=== PATIENT | male | born 1970 | race Caucasian/White ===

== ENCOUNTER → 2018-05-13 09:14 | Outpatient (CLI) | payer OTHER, SELFPAY ==
--- NOTE | 2018-05-13 09:21 | RAD_ITS ---
STUDY: X-RAY CHEST REASON FOR EXAM: Male, 48 years old. Asthma exacerbation TECHNIQUE: PA and lateral views of the chest. COMPARISON: September 07, 2016 chest x-ray FINDINGS: The lungs are clear and expanded. There is no demonstrated pleural abnormality. Normal size heart. Normal mediastinum and bull. Normal visualized pulmonary arteries. Normal visualized aortic arch and descending thoracic aorta. Normal visualized thoracic spine. Normal visualized ribs, clavicles, and shoulders. There is no demonstrated abnormality of the visualized soft tissue structures of the upper abdomen. RAD/Chest PA and Lateral IMPRESSION: Stable chest no visible acute focal infiltrate. Electronically Signed: Esha Ruff MD at 2:57 EST Tel , Service support ,
--- OUTSIDE RECORDS SUMMARY | 2018-08-14 15:57 | XMS RPT_ITS ---
:1970 Author Organization [facility] Care Team Providers Name Role Phone DINESH DAILY MD Attending Unavailable SHRUTI HAYNES, DR. LUCAS Primary Care Unavailable Sammy Arora Attending Unavailable Sammy Arora Referring Unavailable Carlo Barboza Primary Care Unavailable Felix Edouard Attending Unavailable Carlo Barboza Referring Unavailable Carlo Barboza Attending Unavailable Carlo Barboza Referring Unavailable Carlo Barboza Primary Care Unavailable PROBLEMS PROBLEMS No Problem Records FoundPROCEDURES PROCEDURES No Procedure Records FoundRESULTS RESULTS ESOPHAGUS ONLY Observed: 06/16/2018 Status: F Source: [place] 9:[address] [facility] REPOSITORY [facility] Imaging Services [address] [place] [address] Esophagus Only MR#: [id number] Acct: [id number] Name: LUZMARIA ROMO Rep #: [id number] : 1970 M 48 From: Wilber Gomez MD PCP: Carlo Barboza MD Status: REG CLI Study: Esophagus Only Date of Exam: 06/16/18 Exam# [id number] Ordering Dr: Sher Barboza MD STUDY: X-RAY - ESOPHAGUS (BARIUM SWALLOW) WITH FLUOROSCOPY REASON FOR EXAM: Male, 48 years old. Dysphagia. TECHNIQUE: 16 view(s) of the esophagus were obtained following swallowing of barium. FLUOROSCOPY TIME (if supplied): (0:36) minutes/seconds COMPARISON: None. FINDINGS: There is no demonstrated esophageal foreign body. There is no demonstrated stricture or mucosal abnormality. Normal gastroesophageal junction, without a demonstrated hiatal hernia. The patient ingested a 12 mm tablet of barium without any difficulty. Normal visualized aortic arch and descending thoracic aorta. Normal visualized pulmonary parenchyma. Normal visualized osseous structures of the thorax. RAD/Esophagus Only IMPRESSION: Normal plain film x-ray examination (barium swallow) of the esophagus. Electronically Signed: Wilber Gomez MD at 10:15 EST Tel [phone], Service support , CC: Carlo Barboza MD Hospital Fellow: Signed SURGERY VISIT REPORT Observed: 06/09/2018 Status: F Source: [place] 1:[address] [facility] REPOSITORY [facility] [address] [place] [address]. [address] [place] [address] OFFICE VISIT Date of Service: 06/03/18 MR#: [id number] Acct: [id number] Name: LUZMARIA ROMO Rep #: [id number] : 1970 Provider: Felix Edouard MD Age/Sex: 48/M Location: [facility] Status: Signed Intake Vital Signs06/03/18 Height 5 ft 7.5 in 06/03/18 Weight: 190 lb 2 oz 06/03/18 Body Mass Index (BMI) 29.3 Intake Visit Reasons: Multiple lipomas on trunk Chief Complaint: multiple trunk lipomas Counseling Center Director Required: No Is patient in pain?: No Allergies amoxicillin Allergy (Mild, Verified 06/03/18 08:32) hives suture Allergy (Mild, Verified 06/03/18 08:33) rash, pus Medications albuterol sulfate HFA 90 mcg/actuation aerosol inhaler 2 puff INHALATION Q6H PRN 06/03/18 [History Confirmed 06/03/18] [facility] Medical History Asthma (Acute) Back pain (Acute) Lipoma (Acute) Surgical History history of lipoma removal (Acute) Family History Son Asthma Social History Smoking Status: Never smoker HPI HPI HPI: LUZMARIA ROMO, is a 48 M who presents to the office today for evaluation of multiple lipomas on his abdomen and flank area. Patient states he had a lipoma removed by Dr. Mason in the past and it got infected. He has had increasing discomfort with the larger lipomas and has noticed that he has been increasing in the number and size on his chest over the last year to year and a half. ROS General General: Yes fatigue; no weight change, appetite, colon cancer, breast cancer or weakness HEENT HEENT: Yes difficulty swallowing; no eye injury, eye surgery, swollen glands or hoarseness Endo Endocrine: No thyroid disease, diabetes mellitus, thyroid cancer, Hair loss, heat intolerance or cold intolerance Skin Skin: No rash or changing moles Additional Details: multiple lipomas Resp Respiratory: Yes shortness of breath, No sleep apnea, No cough, No COPD, Yes asthma, No emphysema, No wheezing Gastro Gastrointestinal: No abdominal pain, No nausea or vomiting, No diarrhea, No constipation, No blood in stool, No acid reflux, No hemorrhoids, No ulcers, No gallbladder problem, No black,tarry stools Neuro Neurologic: No weakness Exam Skin Other: Patient has a large lipoma on the right flank/rib area another one on the left flank/rib area and a large lipoma on the left mid abdominal area all of these appear to be the most uncomfortable for him. He has multiple other smaller lipomas on his torso and legs Assessment AND Plan Problems 1. Lesion of subcutaneous tissue L98.9 Plan My plan will be to excise is in the office. Risk benefits have been reviewed with the patient the patient agrees to proceed. We will attempt to only use dissolvable sutures so that he will not hopefully get an infection like he did in the past. All questions asked were answered and he agrees to proceed Coding Level of Care Code Off vis,new,level 2 Diagnoses Lesion of subcutaneous tissue L98.9 06/09/18 1304 <Electronically signed by Felix Edouard MD> Date Felix Edouard MD [facility] Signature: Date (if applicable) CC: Carlo Barboza MD CHEST PA AND LATERAL Observed: 05/13/2018 Status: F Source: [place] 9:[address] [facility] REPOSITORY [facility] Imaging Services [address] [place] [address] Chest PA and Lateral MR#: [id number] Acct: [id number] Name: LUZMARIA ROMO Rep #: [id number] : 1970 M 48 From: Esha Ruff MD PCP: Carlo Barboza MD Status: REG CLI Study: Chest PA and Lateral Date of Exam: 05/13/18 Exam# [id number] Ordering Dr: Sammy Arora MD STUDY: X-RAY CHEST REASON FOR EXAM: Male, 48 years old. Asthma exacerbation TECHNIQUE: PA and lateral views of the chest. COMPARISON: September 07, 2016 chest x-ray FINDINGS: The lungs are clear and expanded. There is no demonstrated pleural abnormality. Normal size heart. Normal mediastinum and bull. Normal visualized pulmonary arteries. Normal visualized aortic arch and descending thoracic aorta. Normal visualized thoracic spine. Normal visualized ribs, clavicles, and shoulders. There is no demonstrated abnormality of the visualized soft tissue structures of the upper abdomen. RAD/Chest PA and Lateral IMPRESSION: Stable chest no visible acute focal infiltrate. Electronically Signed: Esha Ruff MD at 2:57 EST Tel , Service support , CC: Carlo Barboza MD; Sammy Arora MD Hospital Fellow: Signed CBC Collected: 11/11/2017 Status: F Source: [facility] 10:58 PM [facility] REPOSITORY TYPE CODE TESTS RESULT OUT OF REFERENCE UNITS RANGE LAB WBC(LOINC) 4.60-10.80 10 3/mcL WBC 9.70 LAB RBCCT(LOINC 4.04-6.13 10 6/mcL ) RBC 5.18 LAB HGB(LOINC) 14.0-18.0 G/dL Hgb 15.5 LAB HCT(LOINC) 42.0-52.0 % Hct 44.8 LAB MCV(LOINC) 80.0-94.0 fL MCV 86.5 LAB MCH(LOINC) 27.0-31.2 pg MCH 29.9 LAB MCHC(LOINC) 31.8-35.4 G/dL MCHC 34.5 LAB RDW(LOINC) 11.5-14.5 % RDW 13.5 LAB PLT(LOINC) 130-400 10 3/mcL Platelet 191 LAB MPV(LOINC) 7.4-10.4 fL High MPV 11.4 Performed By: #### CBC, ADIFF, ANEU, TROP, GFR, BMP #### [facility] [address] [address] .AUTO DIFF Collected: 11/11/2017 Status: F Source: [facility] 10:58 PM [facility] REPOSITORY TYPE CODE TESTS RESULT OUT OF REFERENCE UNITS RANGE LAB DOMENIC(LOINC) 37.0-80.0 % Neutrophil % 54.4 LAB LYM(LOINC) 10.0-50.0 % Lymphocyte % 23.1 LAB MON(LOINC) 1.7-13.0 % Monocyte % 6.4 LAB EO(LOINC) 0.0-7.0 % High Eosinophil % 15.1 LAB BAS(LOINC) 0.0-2.5 % Basophil % 1.0 LAB ABLYM(LOIN 0.77-3.85 10 3/mcL C) Lymphocyte, 2.20 Absolute LAB NICOLE(LOINC 0.15-1.00 10 3/mcL ) Monocyte, 0.60 Absolute LAB AEOS(LOINC 0.00-0.40 10 3/mcL ) High Eosinophil, 1.50 Absolute LAB ABAS(LOINC 0.00-0.19 10 3/mcL ) Basophil, 0.10 Absolute Performed By: #### CBC, ADIFF, ANEU, TROP, GFR, BMP #### [address] [address] .NEUABS Collected: 11/11/2017 Status: F Source: [facility] 10:58 [facility] REPOSITORY TYPE CODE TESTS RESULT OUT OF REFERENCE UNITS RANGE LAB ANEU(LOINC) 2.85-6.16 10 3/mcL Neutrophil, 5.30 Absolute Performed By: #### CBC, ADIFF, ANEU, TROP, GFR, BMP #### [address] [address] TROP Collected: 11/11/2017 Status: F Source: [employer] 10:58 [facility] REPOSITORY TYPE CODE TESTS RESULT OUT OF REFERENCE UNITS RANGE LAB TROP(LOINC) 0.00-0.30 ng/mL Troponin <0.30 Result Comment: Below measuring range >=0.30 Consistent with cardiac damage, increased clinical risk and possibility of myocardial infarction. Serial measurements, clinical history, appropriate symptoms and/or ECG changes may help assess possibility of [place]. *Other non-acute coronary syndrome conditions such as CHF, myocarditis, pulmonary emboli, sepsis and cardiac surgery could result in myocardial damage and increased troponin levels. Performed By: #### CBC, ADIFF, ANEU, TROP, GFR, BMP #### [address] [address] .GFR Collected: 11/11/2017 Status: F Source: [employer] 10:58 PM [facility] REPOSITORY TYPE CODE TESTS RESULT OUT OF REFERENCE UNITS RANGE LAB GFRAA(LOINC ml/min/1.73 ) sqm GFR 101 Italian Result Comment: GFR Population mean for , Non- Americans Ages 20-29 = 116 mL/min/1.73 sq.m. Ages 30-39 = 107 mL/min/1.73 sq.m. Ages 40-49 = 99 mL/min/1.73 sq.m. Ages 50-59 = 93 mL/min/1.73 sq.m. Ages 60-69 = 85 mL/min/1.73 sq.m. Ages 70+ = 75 mL/min/1.73 sq.m. Chronic Kidney Disease: Less than 60 mL/min/1.73 square meters End Stage Renal Disease: Less than 15 mL/min/1.73 square meters LAB GFRNO(LOINC) ml/min/1.73sqm GFR Non- >60 Result Comment: GFR Population mean for , Non- Americans Ages 20-29 = 116 mL/min/1.73 sq.m. Ages 30-39 = 107 mL/min/1.73 sq.m. Ages 40-49 = 99 mL/min/1.73 sq.m. Ages 50-59 = 93 mL/min/1.73 sq.m. Ages 60-69 = 85 mL/min/1.73 sq.m. Ages 70+ = 75 mL/min/1.73 sq.m. Chronic Kidney Disease: Less than 60 mL/min/1.73 square meters End Stage Renal Disease: Less than 15 mL/min/1.73 square meters Performed By: #### CBC, ADIFF, ANEU, TROP, GFR, BMP #### [address] [address] BMP Collected: 11/11/2017 Status: F Source: [facility] 10:58 PM [facility] REPOSITORY TYPE CODE TESTS RESULT OUT OF REFERENCE UNITS RANGE LAB GLU(LOINC) 70-105 mg/dL Glucose Level 98 LAB NA(LOINC) 136-146 mEq/L Sodium Level 143 LAB K(LOINC) 3.5-5.1 mEq/L Potassium Level 4.1 LAB CL(LOINC) 98-107 mEq/L Chloride High 108 LAB CO2(LOINC) 22-29 mEq/L CO2 27 LAB EBAL(LOINC mEq/L ) Electrolyte Balance 8.0 LAB BUN(LOINC) 7.0-18.0 mg/dL BUN 14.4 LAB CRE(LOINC) 0.6-1.2 mg/dL Creatinine Lvl (s) 1.0 LAB BC(LOINC) 7-27 ratio BUN/Creatinine 14 Ratio LAB CA(LOINC) 8.4-10.2 mg/dL Calcium Lvl 9.6 Performed By: #### CBC, ADIFF, ANEU, TROP, GFR, BMP #### [address] [place], [place] [address] LIP Collected: 11/11/2017 Status: F Source: [facility] 10:58 PM [facility] REPOSITORY TYPE CODE TESTS RESULT OUT OF REFERENCE UNITS RANGE LAB LIP(LOINC) 8-78 IU/L Lipase Level 42 Performed By: #### LIP #### [address] [place], [place] [address] ALLERGIES ALLERGIES DATE TYPE / CODE NAME / CODE REACTION SEVERITY SOURCE 06/03/2018 Drug amoxicillin/ Hives [facility] Allergy/4160 [id number]([facility] [address]3557(SNOMED XNORM) Repository CT) 06/03/2018 Drug suture/F0060 rash, pus [facility] Allergy/4160 44849([facility] [address]20(SNOMED ) Repository CT) ENCOUNTERS ENCOUNTERS ADMIT/DISCHARGE ACCOUNT NUMBER ADMITTING ENCOUNTER LOCATION SOURCE CLASS 06/16/2018 [id number] Ambulatory [facility] ding:RAD Repository 06/03/2018/06/03/19 [id number] Ambulatory BMSBuilding: [place] 19 BMS.[facility]ly [facility] Repository 05/13/2018 [id number] [facility] ding:MTRAD Repository 11/11/2017/11/13/19 [id number] Emergency BBuilding:[address] Repository PAYERS PAYERS ENCOUNTER GUARANTOR PAYER SUBSCRIBER SOURCE 06/16/2018 LUZMARIA Benavides Primary CHRISTINA M [place] [id number] Insurance:[facility] UNKEFERDOB: [facility] [address]Pwrfyt [id number] Number: Repository [address]Rjt: [phone] [id number] [phone] (HP) Date:0011-87-92[address], [place] [address]KZ: 06/16/2018 Secondary NOT GIVENUNK Antony Insurance:SELF PAY [facility] Number: Effective Repository Date:2018-06-12 06/03/2018 LUZMARIA Benavides Primary CHRISTINA Davis Antony [id number] Insurance:[employer] UNKEFERDOB: [address] 4832-00-[place] Number: Repository [address]Jiz: 330 [id number] [phone] () Date:3965-01-00WV [address] [place] [phone]: 06/03/2018 Secondary NOT GIVENUNK Antony Insurance:SELF PAY [facility] Number: Effective Repository Date:2018-06-02 05/13/2018 LUZMARIA Benavides Primary CHRISTINA Davis Antony [id number] Insurance:UNITED TH UNKEFERDOB: [address] 8928[place]12[place] Number: Repository [address]Noi: 330 [id number] [phone] () Date:2235-59-60LG [facility] [id number] [place] [id number]: 05/13/2018 Secondary NOT GIVENUNK Antony Insurance:SELF PAY [facility] Number: Effective Repository Date:2018-05-13 11/11/2017 LUZMARIA Benavides [facility] UNKEFERDOB: Insurance:UNITED UNKEFERDOB: [facility] [id number] [facility] [id number] Repository [facility] Number: [address] [place], [place] [id number] [place], [place] [address]Frg: (330) Date:2017-11-11 [address]Yyq: () [id number] [phone] Name:CPO MURCIA ()Tel: [phone], [place] 000-0000 () [phone]:
== END ==
PROVIDERS: Family Provider Family Medicine; PCP Family Medicine; Referring Provider Family Medicine; Visit Provider Family Medicine
DX: J45.901 Unspecified asthma with (acute) exacerbation (principal)
CPT/HCPCS: 71046

== ENCOUNTER → 2018-06-16 08:57 | Outpatient (CLI) | payer OTHER, SELFPAY ==
[2018-06-03 08:30] VITALS: BMI 29.3
--- NOTE | 2018-06-16 09:19 | RAD_ITS ---
STUDY: X-RAY - ESOPHAGUS (BARIUM SWALLOW) WITH FLUOROSCOPY REASON FOR EXAM: Male, 48 years old. Dysphagia. TECHNIQUE: 16 view(s) of the esophagus were obtained following swallowing of barium. FLUOROSCOPY TIME (if supplied): (0:36) minutes/seconds COMPARISON: None. FINDINGS: There is no demonstrated esophageal foreign body. There is no demonstrated stricture or mucosal abnormality. Normal gastroesophageal junction, without a demonstrated hiatal hernia. The patient ingested a 12 mm tablet of barium without any difficulty. Normal visualized aortic arch and descending thoracic aorta. Normal visualized pulmonary parenchyma. Normal visualized osseous structures of the thorax. RAD/Esophagus Only IMPRESSION: Normal plain film x-ray examination (barium swallow) of the esophagus. Electronically Signed: Wilber Gomez MD at 10:15 EST Tel [phone], Service support ,
--- OUTSIDE RECORDS SUMMARY | 2018-08-18 16:12 | XMS RPT_ITS ---
[...] ESOPHAGUS ONLY Observed: 06/16/2018 Status: F Source: [employer] 9:19 AM [facility] Imaging Services [address] [place] [address] Esophagus Only MR#: [id number] Acct: [id number] Name: LUZMARIA ROMO Rep #: [id number] : 1970 M 48 From: Wilber Gomez MD PCP: Carlo Barboza MD Status: REG CLI Study: Esophagus Only Date of Exam: 06/16/18 Exam# [id number] Ordering Dr: Sher Barboza MD STUDY: X-RAY [...] Wilber Gomez MD at 10:15 EST Tel [phone], Service support , CC: Carlo Barboza MD Concrete Gun Operator: Signed SURGERY VISIT REPORT Observed: 06/09/2018 Status: F Source: [employer] 1:04 PM [facility] [address] [place] [address]. [address] [place] [address] OFFICE VISIT Date of Service: 06/03/18 MR#: [id number] Acct: [id number] Name: LUZMARIA ROMO Rep #: [id number] : 1970 Provider: Felix Edouard MD Age/Sex: 48/M Location: [facility] Status: Signed Intake Vital Signs06/03/18 Height 5 ft 7.5 in 06/03/18 Weight: 190 lb 2 oz 06/03/18 Body Mass Index (BMI) 29.3 Intake Visit Reasons: Multiple lipomas on trunk Chief Complaint: multiple trunk lipomas Technical Cable Jointer Required: No Is patient in pain?: No Allergies amoxicillin Allergy (Mild, Verified 06/03/18 08:32) hives suture Allergy (Mild, Verified 06/03/18 08:33) rash, pus Medications albuterol sulfate HFA 90 mcg/actuation aerosol inhaler 2 puff INHALATION Q6H PRN 06/03/18 [History Confirmed 06/03/18] [facility] Medical History Asthma (Acute) Back [...] Felix Edouard MD> Date Felix Ed[facility]ard MD [facility] Signature: Date (if applicable) CC: Carlo Barboza MD CHEST PA AND LATERAL Observed: 05/13/2018 Status: F Source: [employer] 9:22 AM [facility] Imaging Services [address] [place] [address] Chest PA and Lateral MR#: [id number] Acct: [id number] Name: LUZMARIA ROMO Rep #: [id number] : 1970 M 48 From: Esha Ruff MD PCP: Carlo Barboza MD Status: REG CLI Study: Chest PA and Lateral Date of Exam: 05/13/18 Exam# [id number] Ordering Dr: Sammy Arora MD STUDY: X-RAY [...] CC: Carlo Barboza MD; Sammy Arora MD Concrete Gun Operator: Signed CBC Collected: 11/11/2017 Status: F Source: [facility] 10:58 PM [facility] REPOSITORY TYPE CODE TESTS RESULT OUT [...] ADIFF, ANEU, TROP, GFR, BMP #### [facility] [address] [address] .AUTO DIFF Collected: 11/11/2017 Status: F Source: [facility] 10:58 PM [facility] REPOSITORY TYPE CODE TESTS RESULT OUT [...] CBC, ADIFF, ANEU, TROP, GFR, BMP #### [address] [address] .NEUABS Collected: 11/11/2017 Status: F Source: [employer] 10:58 [facility] REPOSITORY TYPE CODE TESTS RESULT OUT OF REFERENCE UNITS RANGE LAB ANEU(LOINC) 2.85-6.16 10 3/mcL Neutrophil, 5.30 Absolute Performed By: #### CBC, ADIFF, ANEU, TROP, GFR, BMP #### [address] [address] TROP Collected: 11/11/2017 Status: F Source: [employer] 10:58 [facility] REPOSITORY TYPE CODE TESTS RESULT OUT OF REFERENCE UNITS RANGE LAB TROP(LOINC) 0.00-0.30 ng/mL Troponin <0.30 Result Comment: Below measuring range >=0.30 Consistent with cardiac damage, increased clinical risk and possibility of myocardial infarction. Serial measurements, clinical history, appropriate symptoms and/or ECG changes may help assess possibility of [place]. *Other non-acute coronary syndrome conditions such as CHF, myocarditis, pulmonary emboli, sepsis and cardiac surgery could result in myocardial damage and increased troponin levels. Performed By: #### CBC, ADIFF, ANEU, TROP, GFR, BMP #### [address] [address] .GFR Collected: 11/11/2017 Status: F Source: [employer] 10:58 PM [facility] REPOSITORY TYPE CODE TESTS RESULT OUT OF REFERENCE UNITS RANGE LAB GFRAA(LOINC ml/min/1.73 ) sqm GFR 101 Albanian Result Comment: GFR Population mean for , [...] CBC, ADIFF, ANEU, TROP, GFR, BMP #### [address] [address] BMP Collected: 11/11/2017 Status: F Source: [facility] 10:58 PM [facility] REPOSITORY TYPE CODE [...] CBC, ADIFF, ANEU, TROP, GFR, BMP #### [address] [place], [place] [address] LIP Collected: 11/11/2017 Status: F Source: [facility] 10:58 PM [facility] REPOSITORY TYPE CODE TESTS RESULT OUT OF REFERENCE UNITS RANGE LAB LIP(LOINC) 8-78 IU/L Lipase Level 42 Performed By: #### LIP #### [address] [place], [place] [address] ALLERGIES ALLERGIES DATE TYPE / CODE NAME / CODE REACTION SEVERITY SOURCE 06/03/2018 Drug amoxicillin/ Hives [facility] Allergy/4160 [id number]([facility] [address](SNOMED XNORM) Repository CT) 06/03/2018 Drug suture/F0060 rash, pus [facility] Allergy/4160 21378([facility] [address](SNOMED ) Repository CT) ENCOUNTERS ENCOUNTERS ADMIT/DISCHARGE ACCOUNT NUMBER ADMITTING ENCOUNTER LOCATION SOURCE CLASS 06/16/[id number] [facility] ding:RAD Repository 06/03/2018/06/03/19 [id number] Ambulatory BMSBuilding: [place] 19 BMS.[facility] Repository 05/13/2018 [id number] [facility] ding:MTRAD Repository 11/11/2017/11/13/19 [id number] Emergency BBuilding:[address] Repository PAYERS PAYERS ENCOUNTER GUARANTOR PAYER SUBSCRIBER SOURCE 06/16/2018 LUZMARIA Benavides Primary CHRISTINA M [place] [id number] Insurance:[facility] UNKEFERDOB: [facility] [address] 1119-82-71[place]OLos [place], [place] Number: Repository [address]Cvb: [phone] [id number] [phone] (HP) Date:5206-43-72IG [address]Q, [place] [address]PN: 06/16/2018 Secondary NOT GIVENUNK Antony Insurance:SELF PAY [facility] Number: Effective Repository Date:2018-06-12 06/03/2018 LUZMARIA Benavides Primary CHRISTINA Davis Antony [id number] Insurance:[employer] UNKEFERDOB: [address] 3699-03-37PHHLos [place], [place] Number: Repository [address]Rxk: 330 [id number] [phone] () Date:3018-75-07EE [address] [place] [address]FR: 06/03/2018 Secondary NOT GIVENUNK Antony Insurance:SELF PAY [facility] Number: Effective Repository Date:2018-06-02 05/13/2018 LUZMARIA Benavides Primary CHRISTINA Davis Antony [id number] Insurance:UNITED TH UNKEFERDOB: [address] 5139-99-04YNPLos [place] Number: Repository [address]Bph: 330 [id number] [phone] () Date:6494-78-33[facility] [id number] [place] [address]ZC: 05/13/2018 Secondary NOT GIVENUNK Antony Insurance:SELF PAY [facility] Number: Effective Repository Date:2018-05-13 11/11/2017 LUZMARIA Benavides [facility] UNKEFERDOB: Insurance:UNITED UNKEFERDOB: [facility] [id number] [facility] [id number] Repository [place] Number: [address] [place], [place] [id number] [place], [place] [address]Idu: (330) Date:2017-11-11 165[address]Ldc: () 1916-07-07Kwrs [phone] Name:CPO MURCIA ()Tel: [phone], [place] 000[address]0000 () [address]TT:
== END ==
PROVIDERS: Family Provider Family Medicine; PCP Family Medicine; Referring Provider Family Medicine; Visit Provider Family Medicine
DX: R13.10 Dysphagia, unspecified (principal)
CPT/HCPCS: 74220

== ENCOUNTER → 2019-02-19 12:13 | Outpatient (CLI) | payer BC, SELFPAY ==
[2018-06-03 08:30] VITALS: BMI 29.3
--- NOTE | 2019-02-19 12:17 | RAD_ITS ---
STUDY: X-RAY - RIGHT SHOULDER REASON FOR EXAM: Male, 48 years old. Neck and shoulder pain. TECHNIQUE: 4 view(s) of the shoulder. COMPARISON: None. FINDINGS: Normal glenohumeral articulation. Normal acromioclavicular joint. Normal acromion. There is a 4.5 cm x 1.8 cm lucency in the proximal shaft of the right humerus. This causes cortical thinning. This may represent an aneurysmal bone cyst. It is also evidence of abnormal trabeculation throughout the visualized portion of the shaft of the right humerus. Correlation with bone scan is recommended. The soft tissue structures are unremarkable. Normal visualized pulmonary apex. RAD/Shoulder min 2 Views IMPRESSION: Abnormal appearance of the right humerus as described. Correlation with a bone scan is recommended. Electronically Signed: Wilber Gomez, at 13:02 EDT , Service support ,
--- NOTE | 2019-02-19 12:17 | RAD_ITS ---
STUDY: X-RAY - CERVICAL SPINE REASON FOR EXAM: Male, 48 years old. Neck pain and bilateral shoulder pain. TECHNIQUE: 5 view(s) of the cervical spine were obtained including oblique views. COMPARISON: None FINDINGS: Normal anterior atlantoaxial articulation. Normal odontoid process. There is straightening of the normal cervical lordosis. Moderate degree of disc space narrowing at the C5-C6 and C6-C7 levels with minimal anterior spondylosis. Normal visualized intervertebral neuroforamina. The soft tissue structures are unremarkable. RAD/Cerv Spine 4 or 5 Views IMPRESSION: Disc space narrowing at the C5-C6 and C6-C7 levels with mild anterior spondylosis. Electronically Signed: Wilber Gomez, at 13:00 EDT , Service support ,
--- NOTE | 2019-02-19 12:17 | RAD_ITS ---
STUDY: X-RAY - LEFT SHOULDER REASON FOR EXAM: Male, 48 years old. Neck pain and shoulder pain. TECHNIQUE: 4 view(s) of the shoulder. COMPARISON: None. FINDINGS: Normal glenohumeral articulation. Normal acromioclavicular joint. Normal acromion. Normal humeral head and visualized proximal humerus. The soft tissue structures are unremarkable. Normal visualized pulmonary apex. RAD/Shoulder min 2 Views IMPRESSION: Normal x-ray examination of the shoulder. Electronically Signed: Wilber Gomez, at 13:00 EDT , Service support ,
== END ==
PROVIDERS: Family Provider Family Medicine; PCP Family Medicine; Referring Provider Family Medicine; Visit Provider Family Medicine
DX: M25.511 Pain in right shoulder (principal); M25.512 Pain in left shoulder
CPT/HCPCS: 72050; 73030

== ENCOUNTER → 2019-03-12 07:31 | Outpatient (CLI) | payer BC, SELFPAY ==
[2018-06-03 08:30] VITALS: BMI 29.3
--- NOTE | 2019-03-12 07:33 | NM_ITS ---
CLINICAL: 48-year-old male with reported history of bilateral shoulder pain. WHOLE BODY 99m Tc MDP RADIONUCLIDE BONE SCINTIGRAPHY COMPARISON: Plain film radiograph reports right-left shoulders, cervical spine 02/19/2019 FINDINGS: Following the intravenous administration of 25.3 mCi of 99m Tc MDP, whole body bone images reveal: 1. Increased radiopharmaceutical concentration is identified in the right mid humeral diaphysis appears to correlate with the radiographic abnormality defined on plain film x-ray of the right shoulder report dated 02/19/2019. 2. Facilitated uptake is confluently defined throughout the right hemipelvis to include the iliac wing, acetabulum, right posterior ilium and sacral ala. 3. There is an increase in tracer uptake noted in the left posterolateral 10th rib. 4. Enhanced radiotracer concentration is visualized in the patellofemoral compartment of the right knee, glenohumeral, acromioclavicular and glenohumeral compartments of both shoulders, lower cervical spine posteriorly on the left. 5. The remaining skeletal structures are scintigraphically unremarkable with normal-appearing renal images and urinary bladder activity identified. NM/Bone Scan Whole Body IMPRESSION: 1. The increase in radiopharmaceutical concentration defined in the right mid humeral diaphysis correlates with the radiographic changes defined on plain film chest x-ray report of the right shoulder dated 02/19/2019. 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 2. Increased uptake defined in the right hemipelvis may be further investigated with plain film radiography. 3. Degenerative arthritis appears expressed in the right knee, bilateral shoulders and lower cervical spine. 4. The left posterolateral 10th rib increase in tracer uptake likely represents previous trauma-fracture. Electronically Signed: Jericho Varghese DO at 15:24 EDT Tel , Service support ,
== END ==
PROVIDERS: Family Provider Family Medicine; PCP Family Medicine; Referring Provider Family Medicine; Visit Provider Family Medicine
DX: M25.511 Pain in right shoulder (principal)
CPT/HCPCS: 78306

== ENCOUNTER 2019-03-24 08:30 | Outpatient (RCR) | payer BC, SELFPAY ==
[2018-06-03 08:30] VITALS: BMI 29.3
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
--- NOTE | 2019-05-28 11:32 | HP.PT.NRP ---
HP - Discharge Summary (1) - Patient Information LUZMARIA ROMO was seen in my office for initial evaluation on 03/12/19. The following Plan of Care was established for this patient: Initial Frequency: 2-3x /Week Initial Duration: 4-6 Weeks - Anticipated Interventions Patient/Client Instruction: Educate patient on: Condition, Plan of Care, Risk Factors, Benefits of Fitness Program For the Purpose of:: To improve self management Therapeutic Exercise to Include: Strength training, Postural training, Flexibilty training, Passive ROM, Active ROM, Scapular Strength/Stabilization For the Purpose of:: To decrease pain, To increase ROM, To improve muscle performance and motor function, To increase tolerance to activity/condition/position, To improve ability of physical actions for home/community/work/leisure Manual Therapy Techniques to Include: Soft tissue mobilization, Other Comment: TRACTION/DISTRACTION For the Purpose of:: To decrease pain, To increase ROM, To improve nutrient delivery to tissue TENS: Yes Cryotherapy (ice pack, ice massage): Yes Thermo therapy (hot pack): Yes Ultrasound (thermal/non thermal): Yes For the Purpose of:: To decrease pain, To decrease swelling/inflammation, To increase ROM, To improve nutrient delivery to tissue This patient was last seen in our office 03/24/19. Pertinent comments regarding their Physical therapy will appear below: This patient has not returned to Physical Therapy and is appropriate to return to MD for further follow-up as needed. At this point I will be discontinuing this patient from physical therapy. I would be happy to see this patient again in the future if found appropriate by the physician. Thank you! Vonnie Nevarez, PT, Cert MDT
== END 2019-03-24 19:00 | disposition home or self-care (01) ==
LOC: PT 08:30
PROVIDERS: Family Provider Family Medicine; PCP Family Medicine; Referring Provider Family Medicine; Visit Provider Family Medicine
DX: M25.512 Pain in left shoulder (principal)
CPT/HCPCS: 97012; 97035; 97110; 97162; 97530

== ENCOUNTER → 2021-01-06 12:54 | Outpatient (CLI) | payer BC, SELFPAY ==
[2018-06-03 08:30] VITALS: BMI 29.3
[2021-01-06 15:19] LABS: Absolute Neutrophil Count 3.3 X10^3/uL (2.0-7.7); Basophil# 0.15 X10^3/uL; Basophil% 2.3 % (0-1); Eosinophil# 0.84 X10^3/uL; Eosinophils% 12.8 % (0-5); Hematocrit 44.4 % (40-54); Hemoglobin 14.5 g/dL (13.0-16.5); Mean Corp Hgb Conc 32.7 g/dL (32-36); Mean Corpuscular Hgb 29.1 pg (27.0-32.0); Mean Corpuscular Volume 89.2 fL (80-94); Mean Platelet Vol. 13.3 fl (6.2-12.0); Monocyte# 0.52 X10^3/uL; NRBC Flagged by Analyzer 0 % (0-5); Neutrophil # 3.31 X10^3/uL (2.7-7.7); Neutrophil % 50.6 % (47-70); Platelet Count 194 K/mm3 (150-450); RBC Distribution Width CV 13.1 % (11.6-14.6); RBC Distribution Width SD 42.7 fl (35.1-43.9); Red Blood Count 4.98 M/mm3 (4.6-6.2); White Blood Count 6.5 K/mm3 (4.4-11.0)
[2021-01-06 15:32] LABS: ALB/GLOB Ratio 1.2 RATIO (0.9-2.4); AST(SGOT) 27 U/L (15-37); Alanine Aminotransfer ALT/SGPT 36 U/L (16-61); Albumin, Serum 3.8 g/dL (3.2-5.0); Alkaline Phosphatase 148 U/L (45-117); Anion Gap 4 (5-15); BUN 13 mg/dL (7-18); BUN/Creat Ratio 11.9 RATIO (10-20); Calcium,Total 8.9 mg/dL (8.5-10.1); Chloride 108 mmol/L (98-107); Cholesterol 230 mg/dL (200); Creatinine, Serum 1.09 mg/dL (0.70-1.30); EST Glomerular Filtration Rate 76 mL/min (>60); Est Glom Filt Rate - Afr Amer 92 mL/min (>60); Globulin 3.1 g/dL (2.2-4.2); Glucose 85 mg/dL (74-106); High Density Lipoprotein 60 mg/dL; Potassium 4.1 mmol/L (3.5-5.1); Protein, Total 6.9 g/dL (6.4-8.2); Sodium Level 141 mmol/L (136-145); Triglycerides 122 mg/dL; Very Low Density Lipoprotein 24 mg/dL (5-40)
== END ==
PROVIDERS: PCP Family Medicine; Referring Provider Family Medicine; Visit Provider Family Medicine
DX: E66.9 Obesity, unspecified (principal)
CPT/HCPCS: 36415; 80053; 80061; 85025

== ENCOUNTER → 2022-03-09 | Outpatient (CLI) | payer OTHER, SELFPAY ==
--- NOTE | 2022-03-09 16:30 | RAD_ITS ---
INDICATION: neck pain: neck pain, cracking noises when he turns head, pain worse after getting covid EXAMINATION/TECHNIQUE: X-RAY - XR Neck Soft Tissue-AP, lateral, and swimmer''s views of the cervical spine COMPARISON: 02/19/2019 FINDINGS: VERTEBRAE: Preserved vertebral body height. No fracture. No spondylolisthesis. Preservation of the normal cervical lordosis. No significant facet arthropathy. DISCS: Disc space narrowing and minimal osteophyte formation at C6-7. Findings are stable. Minimal changes also noted at C5-6. NECK SOFT TISSUES: No prevertebral soft tissue widening. LUNG APICES: Clear. RAD/Neck for Soft Tissue IMPRESSION: 1. Stable exam. Mild cervical spondylosis is stable changes at C6-7 and to lesser extent C5-6. 2. No acute fracture subluxation or malalignment. Prevertebral paraspinous soft tissue planes have normal appearance.. Electronically Signed: Jericho Joseph MD at 17:57 EDT ,
== END | disposition home or self-care (01) ==
PROVIDERS: PCP Family Medicine; Referring Provider Nurse Practitioner Family; Visit Provider Nurse Practitioner Family
DX: M54.2 Cervicalgia (principal)
CPT/HCPCS: 70360

== ENCOUNTER → 2022-10-05 | Outpatient (CLI) | payer OTHER, SELFPAY ==
[2022-10-05 10:10] LABS: Absolute Lymphocyte Count 1.76 X10^3/uL (0.83-4.51); Absolute Neutrophil Count 3.7 X10^3/uL (2.0-7.7); Basophil# 0.13 X10^3/uL; Basophil% 1.8 % (0-1); Eosinophil# 0.87 X10^3/uL; Eosinophils% 12.2 % (0-5); Hematocrit 45.6 % (40-54); Hemoglobin 14.8 g/dL (13.0-16.5); Lymphocyte # 1.76 X10^3/ul (0.83-4.51); Lymphocyte % 24.6 % (19-41); Mean Corp Hgb Conc 32.5 g/dL (32-36); Mean Corpuscular Hgb 29.4 pg (27.0-32.0); Mean Corpuscular Volume 90.5 fL (80-94); Mean Platelet Vol. 13.3 fl (6.2-12.0); Monocyte# 0.64 X10^3/uL; NRBC Flagged by Analyzer 0 % (0-5); Neutrophil # 3.72 X10^3/uL (2.7-7.7); Neutrophil % 52.1 % (47-70); Platelet Count 179 K/mm3 (150-450); RBC Distribution Width CV 12.9 % (11.6-14.6); RBC Distribution Width SD 42.6 fl (35.1-43.9); Red Blood Count 5.04 M/mm3 (4.6-6.2); White Blood Count 7.1 K/mm3 (4.4-11.0)
[2022-10-05 10:40] LABS: Vitamin B12 850 pg/mL (211-911); Vitamin D,25 Hydroxy 74.2 ng/mL
[2022-10-05 11:06] LABS: ALB/GLOB Ratio 1.4 RATIO (0.9-2.4); AST(SGOT) 23 U/L (15-37); Alanine Aminotransfer ALT/SGPT 34 U/L (16-61); Albumin, Serum 3.9 g/dL (3.2-5.0); Alkaline Phosphatase 164 U/L (45-117); Anion Gap 7 (5-15); BUN 20 mg/dL (7-18); BUN/Creat Ratio 18.2 RATIO (10-20); Calcium,Total 9.1 mg/dL (8.5-10.1); Chloride 107 mmol/L (98-107); EST Glomerular Filtration Rate 75 mL/min (>60); Est Glom Filt Rate - Afr Amer 91 mL/min (>60); Estradiol 26.6 pg/mL; Ferritin 141 ng/mL (26-388); Follicle Stimulating Hormone 3.2 mIU/mL; Globulin 2.8 g/dL (2.2-4.2); Glucose 49 mg/dL (74-106); Luteinizing Hormone 1.2 mIU/mL; PSA,Total- Diagnostic 1.32 ng/mL (0.0-4.0); Potassium 3.5 mmol/L (3.5-5.1); Protein, Total 6.7 g/dL (6.4-8.2); Sodium Level 141 mmol/L (136-145); T4 Free Direct 1.08 ng/dL (0.76-1.46); Thyroid Stim Hormone (TSH) 1.46 uIU/mL (0.358-3.74)
[2022-10-11 13:08] LABS: Testosterone, % Free 2.78 % (1.50-4.20); Testosterone, Free 9.06 ng/dL (5.00-21.00); Testosterone, Total 326 ng/dL (264-916)
== END | disposition home or self-care (01) ==
LOC: MFPLAB 08:28
PROVIDERS: PCP Family Medicine; Visit Provider Family Medicine
DX: R53.83 Other fatigue (principal)
CPT/HCPCS: 36415; 80053; 82306; 82607; 82670; 82728; 83001; 83002; 84153; 84402; 84403; 84439; 84443; 84481; 85025

== ENCOUNTER → 2022-10-26 | Outpatient (CLI) | payer OTHER, SELFPAY ==
[2022-10-26 18:01] LABS: Insulin 50.7 mU/L (2.6-37.6)
== END | disposition home or self-care (01) ==
PROVIDERS: PCP Family Medicine; Referring Provider Family Medicine; Visit Provider Family Medicine
DX: E16.2 Hypoglycemia, unspecified (principal); R53.83 Other fatigue
CPT/HCPCS: 36415; 83525; 84403

== ENCOUNTER 2022-11-02 09:59 | Day surgery (SDC) | payer OTHER, SELFPAY ==
[2022-11-02] VITALS (9 sets, daily range): BP systolic 133–172; BP diastolic 71–102; PULSE 70–83; RESP 16–18; TEMP 36.5–37; O2SAT 94–99; BMI 33.6
[2022-11-02] MEDS: Lactated Ringers 1,000 ML 15 ML IV (10:29)
--- NOTE | 2022-11-02 11:25 | LIP_PTH ---
PATIENT: LUZMARIA ROMO LOC: [facility] [place] U#:[id number] AGE/SX: 52/M ROOM: RE11/02/[address]: Dr. Terrence Brantley MD : 1970 BED: DIS: 11/02/2022 SPEC #: [id number] RECD: 11/02/22 15:26 STATUS: SHWETA RESatish #: [id number] ARIADNA: 11/02/22 11:[address]: Terrence Brantley DEPT: SURGICAL PATHOLOGY RECD BY: Domingo Jay ENTERED: 11/05/22 08:04 SP TYPE: LIPOMA OTHR DR: Angeles English, DO Tissues: A - Soft tissues, NOS B - Soft tissues, NOS Procedures: Surgery Specimen Level III HEADER OPERATION: Excision painful soft tissue masses left abdominal wall PRE-OP DIAGNOSIS: 10.0 cm painful soft tissue masses cluster left upper abdominal wall; 12.0 cm painful soft tissue masses cluster right posterior arm; 9.0 cm painful soft tissue masses cluster right medial arm; 8.0 cm painful soft tissue masses cluster left posterior arm; 1.5 cm painful soft tissue mass right lower medial back TISSUE SUBMITTED: A ? Left arm lipomas, B ? Abdominal lipomas MICROSCOPIC DIAGNOSIS A. Left arm lipomas, excision: Pieces of mature adipose tissue consistent with lipomas. B. Abdominal lipomas, excision: Pieces of mature adipose tissue consistent with lipomas. See comment. SJ:darren 11/06/2022 COMMENT B. 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 MICROSCOPIC DESCRIPTION Slides are reviewed. GROSS DESCRIPTION A - Received in fixative is one container labeled with the patient's name and designated left arm lipomas. The specimen consists of a piece of yellow adipose tissue measuring 3.0 x 2.0 x 0.8 cm. A small piece of adipose tissue is also noted measuring 0.6 x 0.6 x 0.2 cm. The larger piece is serially sectioned to reveal yellow adipose cut surface without area of necrosis, hemorrhage or cystic degeneration. Pillowcase Cutter sections from the larger piece and the entire smaller piece is submitted in one cassette. B - Received in fixative is one container labeled with the patient's name and designated abdominal lipomas. The specimen consists of multiple pieces of yellow adipose tissue that in aggregate measure 8.0 x 9.0 x 2.0 cm and 1.5 to 4.0 cm in greatest dimension. Sections reveal yellow adipose cut surfaces without area of fibrosis, necrosis or cystic degeneration. A few of the lipomas show kelly-white fibrous cut surfaces. Pillowcase Cutter sections are submitted in four cassettes. / VASILIY:darren 11/05/2022 TC:1 CPT: 91642 x2
[2022-11-02] MEDS: Clindamycin 900 MG/50 ML BAG 75 MG IV (11:43)
[2022-11-02] MEDS: Mupirocin Ointment 22gm Tube 1 APPLIC (12:25)
[2022-11-02] MEDS: Lidocaine 1% /Epi 1:100 (20ml) 20 ML Vial (12:26)
--- NOTE | 2022-11-02 13:16 | OP.PCM_ITS ---
Problems Associated Problem List Diagnoses (1) Subcutaneous mass of abdominal wall: (2) Mass of left chest wall: (3) Dysesthesia of multiple sites: (4) Subcutaneous mass of left upper extremity: Report of Operation Date of Procedure: 11/02/22 Pre-Operative Diagnosis: 1. 10 cm painful soft tissue masses cluster left upper abdominal wall. 2. 4 cm painful soft tissue mass left posterior arm. Post-Operative Diagnosis: 1. 12 cm painful soft tissue masses cluster left upper abdominal wall (8 cm)/lower chest wall (4 cm). 2. 4 cm painful soft tissue mass left posterior arm. Surgery/Procedure Performed:: 1. Excision 12 cm painful soft tissue masses cluster left upper abdominal wall (8 cm)/lower chest wall (4 cm). 2. Excision 4 cm painful soft tissue mass left posterior arm. Description of Surgical Findings:: 52 year old man presents with multiple painful soft tissue masses on his right lower medial back, left upper abdominal wall/lower chest wall, right posterior arm, right medial arm, and left posterior arm that have increased in size over the last several months.? He has had lipomas removed in the past.? He? has multiple other soft tissue masses but they are smaller and not painful at this time.? He denies fever.? He denies trauma.? He denies recent infection. ? He denies drainage.? Patient is right hand dominant. Patient was informed of the risks and complications of the procedure including alternatives to surgery. These were discussed with the patient personally. Patient voices understanding and wishes to proceed. Some of the risks and complications were included in a form from the [employer]. Potential risks and complications included but not inclusive of bleeding, infection, seroma, hematoma, bruising, swelling, prolonged need for drains, loss of sensation to skin, wound breakdown, need for wound care, poor scarring, poor aesthetic outcome, intra operative cardiac or neurologic events, DVT, PE, and reaction to anesthesia. I used Anuradha absorbable hemostat, (I used 2 vials, one in left posterior arm and one in left upper abdominal wall/lower chest wall). Reference Number - [id number]. Lot Number - [id number]. Expiration - May 23, 2027, (Left posterior arm). Reference Number - [id number]. Lot Number - [id number]. Expiration - June 23, 2027, (Left upper abdominal wall/lower chest wall). Surgeon: Terrence Brantley MD transfer car operator: Dwayne Brady RNFA Type of Anesthesia: General Anesthesiologist: Michael Elizalde MD and Izzy Briscoe CRNA Specimen's removed: 1. Painful soft tissue masses cluster left upper abdominal wall/lower chest wall to Pathology. 2. Painful soft tissue mass left posterior arm to Pathology. Drains: Jason (left upper abdominal wall/lower chest wall). Estimated Blood Loss (mL): 50. Description of Procedure: Patient was taken to OR in supine position and was placed under general anesthesia. The left posterior arm and left upper abdominal wall/lower chest wall areas were prepped and draped in the usual fashion. SCD's were placed for DVT prophylaxis. Perioperative antibiotics were given intravenously. Using xylocaine with epinephrine, the masses were infiltrated. After waiting 5 minutes for the anesthetic to take effect, I made a longitudinal incision left posterior arm down into the subcutaneous tissue. The mass was dissected sharply. It was well-encapsulated. Clinically it looks like a lipoma. Once excised the soft tissue mass was sent to Pathology for analysis to rule out c arcinoma. Hemostasis was obtained with electrocautery. The cavity was larger than the palpable mass wound indicate. It wasn't large enough for a drain, but I sprayed Anuradha absorbable hemostat into the wound to minimize seroma formation. The wound was closed in a layered fashion using 3-0 Monocryl interrupted sutures for the deep dermis and subcutaneous tissue. The skin was approximated with 4-0 Prolene simple interrupted sutures. I then went to the left upper abdominal wall. Several palpable masses were present. Previous scars would indicate that these masses were excised in this area before. I made 3 incisions strategically placed so I could get exposure to all the soft tissue masses. Dissection was carried down into the subcutaneous tissue. A lot of dense scar tissue was present indicative of previous excision of these masses. All the masses in this cluster were sharply excised and sent to Pathology for analysis to rule out carcinoma. There was extension of these masses to the lower chest wall that wasn't palpable preoperatively. The soft tissue masses were well encapsulated. Clinically these masses looked like lipomas. The surrounding scar tissue was also excised and sent to Pathology as well. Some of the scar tissue was adherent to the left chest wall musculature. There was a bulge on the left chest wall, and I was concerned that there were submuscular so ft tissue masses as well. I made an oblique incision through the fascia. Using a hemostat, I gently the muscle fibers. I got down to the chest wall and no submuscular masses were seen. His left pectoralis muscle was quite huge which explained the bulge. The fascia was approximated with 2-0 Vicryl simple interrupted sutures. Once excised, they were sent to Pathology for analysis to rule out carcinoma. The three incisions that were made were helpful during the dissection of these masses cluster. The inferior incisions gave good exposure for the left upper abdominal wall masses cluster. The superior incision gave good exposure for the left lower chest wall masses cluster. The wound was irrigated with saline. Hemostasis was obtained with electrocautery. About 8 cm of the masses cluster were in the left upper abdominal wall. About 4 cm of the masses cluster were in the left lower chest wall. The cavity was large enough that a drain was needed. I placed a size 15 Jason drain through a separate stab incision and secured to the skin with a 3-0 Nylon pursestring suture. I sprayed Anuradha absorbable hemostat into the wound to minimize seroma formation. All three incisions were closed in a layered fashion with 3-0 Monocryl interrupted sutures for the deep dermis and subcutaneous tissue. The skin was approximated with 3-0 Prolene simple interrupted sutures. Antibiotic ointment was applied to the suture lines both on the left upper abdominal wall/lower chest wall and the left posterior arm. Kerlix gauze was then applied to both sites and followed with compression lianne wraps for the left arm and left upper abdominal wall/lower chest wall. Patient tolerated the procedure well and was sent to PACU in satisfactory condition. Patient will be sent home on antibiotics and pain medication. He will keep his left arm and head elevated during the initial postoperative period. Patient will followup in a week for a wound check and for discussion of the pathology report. The drain will be removed in a week. The sutures will be removed in 2 weeks. Grafts/Implants Used: Anuradha Procedure Start Time: 12:08 Procedure Stop Time: 13:28 Complications None. Admit VTE Documentation VTE Present on Admission: No VTE Mechan Device Prophylaxis: SCD's VTE Pharm Prophylaxis ordered?: No Addendum Addendum: Surgery Charges CPT - 27991 ICD-10 - R22.2, R20.8 88283 R22.2, R20.8 65439 R22.32, R20.8
--- NOTE | 2022-11-02 13:25 | DCINST_ITS ---
Discharge Instructions Diet Discharge Diet: No restrictions and - (encourage nutritional supplementation with protein to help the healing process.) Activity Discharge Activity: May Drive (when not taking narcotics pain medication.), May Shower (after the drain is removed.) and - (keep head elevated. no heavy lifting.) May shower in (days): 7 (after the drain is removed in the office.) May resume sexual activity in: 10-14 days Weight Bearing Status: Weight bearing as tolerated Lifting Restrictions: 20 lbs. Keep extremity elevated above heart level: Left Arm and - (elevate head.) Dressing / Incision Call your doctor if your incision/area has: Continuous Slow Oozing, Sudden Increased Bleeding, Increased Pain/ Swelling, Increased Redness, Foul Smelling Discharge and Swelling at the incision site Call your doctor if you observe: Fever of 101 or Higher, Coldness, Increased Yg n, Shortness of breath, Chest pain, Calf discomfort and Uncontrolled pain Suture Line Care: - (may remove the dressings in two days. Apply antibiotic ointment to suture lines daily. Then reapply lianne wraps to left arm and left upper abdominal wall/lower chest wall.) Remove Dressing in: 2 days (Apply antibiotic ointment to suture lines daily. Then reapply lianne wraps to left arm and left upper abdominal wall/lower chest wall.) Cleanse incision/area with: - (may get incisions wet in the shower after the drain is removed in the office.) Drain: Suction (Jason drain to bulb suction. Empty and record output daily.) Follow Up Care Please Follow Up With: Terrence Brantley MD When: one week. call [phone] for appt. Test Results: Test results from this visit will be discussed in further detail at your follow- up appointment, if applicable. Discharge Plan Admission Primary Reason for Your Visit: excision painful soft tissue masses lt arm and lt abdominal wall/chest wall Attending Provider: Terrence Brantley Primary Care Provider: Angeles English Discharge Orders/Prescriptions Prescriptions: New clindamycin HCl [Cleocin HCl] 300 mg capsule 300 mg PO TID Qty: 30 0RF L.acidoph,saliva-B.bif-S.therm [Acidophilus Probiotic Blend] 175 mg capsule 1 cap PO DAILY Qty: 30 0RF oxycodone-acetaminophen [Percocet] 5-325 mg tablet 1 tab PO Q6H PRN (Reason: pain (scale score 7-10)) 7 Days Qty: 28 0RF Rx Instructions: 28 tabs (twenty-eight) Continued budesonide-formoterol [Symbicort] 80-4.5 mcg/actuation HFA aerosol inhaler 2 puff inhalation BID PRN (Reason: ASTHMA) epinephrine [EpiPen 2-Farhat] 0.3 mg/0.3 mL auto-injector 0.3 mg IM Q5-15M PRN (Reason: ALLERGIES) Rx Instructions: do not exceed 3 doses per episode Referrals / Follow Up: Angeles English DO [Primary Care Provider] - Disposition Disposition (needs filled in before D/C Order can be placed): Home, Self Care
== END 2022-11-02 16:27 | disposition home or self-care (01) ==
LOC: SDC 10:01 → AC 10:02
PROVIDERS: PCP Family Medicine; Referring Provider Surgery; Visit Provider Surgery
PROC: (CPT 22903; principal; 2022-11-02 11:10)
DX: R22.2 Localized swelling, mass and lump, trunk (principal); R20.8 Other disturbances of skin sensation; R22.32 Localized swelling, mass and lump, left upper limb; R22.31 Localized swelling, mass and lump, right upper limb; J45.909 Unspecified asthma, uncomplicated
CPT/HCPCS: 22903; 21552; 24071; 00700; 88304; J2405

== ENCOUNTER → 2022-12-14 | Outpatient (CLI) | payer OTHER, SELFPAY ==
[2022-12-14 10:53] LABS: Hematocrit 45.5 % (40-54); Mean Corpuscular Hgb 29.5 pg (27.0-32.0); Mean Corpuscular Volume 89.6 fL (80-94); Mean Platelet Vol. 13.2 fl (6.2-12.0); Platelet Count 184 K/mm3 (150-450); Red Blood Count 5.08 M/mm3 (4.6-6.2); White Blood Count 7.7 K/mm3 (4.4-11.0)
[2022-12-14 11:12] LABS: Insulin 16.5 mU/L (2.6-37.6); Vitamin D,25 Hydroxy 50.5 ng/mL
[2022-12-14 11:17] LABS: Hemoglobin A1c 5.3 % (3.8-5.6)
[2022-12-14 11:27] LABS: ALB/GLOB Ratio 1.3 RATIO (0.9-2.4); AST(SGOT) 19 U/L (15-37); Alanine Aminotransfer ALT/SGPT 39 U/L (16-61); Albumin, Serum 3.9 g/dL (3.2-5.0); Alkaline Phosphatase 168 U/L (45-117); Anion Gap 6 (5-15); BUN 16 mg/dL (7-18); BUN/Creat Ratio 14.7 RATIO (10-20); Chloride 111 mmol/L (98-107); Cholesterol 245 mg/dL (200); Creatinine, Serum 1.09 mg/dL (0.70-1.30); EST Glomerular Filtration Rate 76 mL/min (>60); Est Glom Filt Rate - Afr Amer 92 mL/min (>60); Ferritin 106 ng/mL (26-388); Follicle Stimulating Hormone 3.4 mIU/mL; Globulin 3.1 g/dL (2.2-4.2); Glucose 95 mg/dL (74-106); High Density Lipoprotein 67 mg/dL; Iron Binding Capacity,Total 346 ug/dL (250-450); Luteinizing Hormone 2.4 mIU/mL; Potassium 4.2 mmol/L (3.5-5.1); Sodium Level 143 mmol/L (136-145); Thyroid Stim Hormone (TSH) 2.88 uIU/mL (0.358-3.74); Triglycerides 172 mg/dL; Very Low Density Lipoprotein 34 mg/dL (5-40)
[2022-12-18 12:19] LABS: Adrenocorticotropic Hormone 32.6 pg/mL (7.2-63.3); C-Peptide 3.5 ng/mL (1.1-4.4)
== END | disposition home or self-care (01) ==
PROVIDERS: PCP Family Medicine; Referring Provider Internal Medicine Endocrinology, Diabetes & Metabolism; Visit Provider Internal Medicine Endocrinology, Diabetes & Metabolism
DX: E16.2 Hypoglycemia, unspecified (principal); R53.83 Other fatigue; M88.9 Osteitis deformans of unspecified bone
CPT/HCPCS: 36415; 80053; 80061; 82024; 82306; 82533; 82728; 83001; 83002; 83036; 83525; 83550; 84443; 84681; 85027

== ENCOUNTER → 2022-12-26 | Outpatient (CLI) | payer OTHER, SELFPAY ==
[2022-12-26 15:51] LABS: Free T3 2.8 pg/mL (2.18-3.98); T4 Free Direct 0.91 ng/dL (0.76-1.46)
[2023-01-02 19:07] LABS: Estrogen, Total, Serum 258 pg/mL (56-213)
== END | disposition home or self-care (01) ==
LOC: MTLAB 13:40
PROVIDERS: PCP Family Medicine; Referring Provider Internal Medicine Endocrinology, Diabetes & Metabolism; Visit Provider Internal Medicine Endocrinology, Diabetes & Metabolism
DX: E16.2 Hypoglycemia, unspecified (principal); R53.83 Other fatigue; M88.9 Osteitis deformans of unspecified bone
CPT/HCPCS: 36415; 82672; 84403; 84439; 84481

== ENCOUNTER → 2023-01-14 | Outpatient (CLI) | payer OTHER, SELFPAY ==
[2023-01-14 10:26] LABS: 24HR. Urine Creatinine 1.39 g/24 HR (0.90-2.10)
[2023-01-14 13:31] LABS: Insulin 26.4 mU/L (2.6-37.6)
[2023-01-14 14:10] LABS: Estradiol 25.8 pg/mL; Luteinizing Hormone 1.1 mIU/mL; Prolactin 7.6 ng/mL
[2023-01-17 12:09] LABS: 17-Hydroxyprogesterone 49 ng/dL (27-199)
[2023-01-19 18:08] LABS: Estrogen, Total, Serum 316 pg/mL (56-213); Growth Hormone < 0.1 ng/mL (0.0-10.0); Sex Hormone-binding Globulin 35.1 nmol/L (19.3-76.4); Testosterone, % Free 3.12 % (1.50-4.20); Testosterone, Free 9.92 ng/dL (5.00-21.00); Testosterone, Total 318 ng/dL (264-916)
[2023-01-19 21:07] LABS: Metanephrine, Ur 35 ug/L (Undefined); Metanephrines, 24Ur 98 ug/24 hr (58-276); Normetanephrines, 24Ur 260 ug/24 hr (156-729); Normetanephrines, Ur 93 ug/L (Undefined)
== END | disposition home or self-care (01) ==
PROVIDERS: PCP Family Medicine; Referring Provider Internal Medicine Endocrinology, Diabetes & Metabolism; Visit Provider Internal Medicine Endocrinology, Diabetes & Metabolism
DX: E16.2 Hypoglycemia, unspecified (principal)
CPT/HCPCS: 36415; 81050; 82570; 82627; 82670; 82672; 83002; 83003; 83498; 83525; 83835; 84146; 84270; 84402; 84403; 82626

== ENCOUNTER → 2023-01-17 | Outpatient (CLI) | payer OTHER, SELFPAY ==
[2023-01-17 18:04] LABS: Anion Gap 8 (5-15); BUN 14 mg/dL (7-18); BUN/Creat Ratio 13.3 RATIO (10-20); Calcium,Total 9.4 mg/dL (8.5-10.1); Chloride 105 mmol/L (98-107); Creatinine, Serum 1.05 mg/dL (0.70-1.30); EST Glomerular Filtration Rate 79 mL/min (>60); Est Glom Filt Rate - Afr Amer 96 mL/min (>60); Glucose 88 mg/dL (74-106); Potassium 3.8 mmol/L (3.5-5.1); Sodium Level 140 mmol/L (136-145)
[2023-01-20 21:06] LABS: C-Peptide 1.9 ng/mL (1.1-4.4); Insulin Like Growth Factor 186 ng/mL (74-255)
== END | disposition home or self-care (01) ==
PROVIDERS: PCP Family Medicine; Referring Provider Internal Medicine Endocrinology, Diabetes & Metabolism; Visit Provider Internal Medicine Endocrinology, Diabetes & Metabolism
DX: R79.89 Other specified abnormal findings of blood chemistry (principal); M88.9 Osteitis deformans of unspecified bone; R53.83 Other fatigue
CPT/HCPCS: 36415; 80048; 84305; 84681

== ENCOUNTER → 2023-01-21 | Outpatient (CLI) | payer OTHER, SELFPAY ==
[2023-01-24 01:07] LABS: Dopamine, 24Ur 414 ug/24 hr (0-510); Dopamine, UR 138 ug/L (Undefined); Epinephrine, 24Ur 3 ug/24 hr (0-20); Epinephrine, Ur 1 ug/L (Undefined); Norepinephrine, 24Ur 48 ug/24 hr (0-135); Norepinephrine, Ur 16 ug/L (Undefined)
== END | disposition home or self-care (01) ==
LOC: MTLAB 08:56
PROVIDERS: PCP Family Medicine; Referring Provider Internal Medicine Endocrinology, Diabetes & Metabolism; Visit Provider Internal Medicine Endocrinology, Diabetes & Metabolism
DX: E16.2 Hypoglycemia, unspecified (principal)
CPT/HCPCS: 81050; 82384

== ENCOUNTER 2023-02-01 05:56 | Day surgery (SDC) | payer OTHER, SELFPAY ==
[2023-02-01] VITALS (7 sets, daily range): BP systolic 120–134; BP diastolic 63–86; PULSE 65–87; RESP 16; TEMP 36.5–36.7; O2SAT 93–100; BMI 30.7
--- NOTE | 2023-02-01 | MASS_PTH ---
PATIENT: LUZMARIA ROMO [place] [facility] [id number] AGE/SX: 52/M ROOM: RE02/01/[address]: Dr. Terrence Brantley MD : 1970 BED: DIS: 02/01/2023 SPEC #: [id number] RECD: 02/01/23 13:37 STATUS: SHWETA REQ #: [id number] ARIADNA: 02/01/23 00:[address]: Terrence Brantley DEPT: SURGICAL PATHOLOGY RECD BY: Nikolas Hernandez ENTERED: 02/04/23 10:12 SP TYPE: Mass OTHR DR: Angeles English DO Tissues: A - Back, NOS B - Abdomen, NOS C - Arm, NOS D - Arm, NOS Procedures: Surgery Specimen Level III HEADER OPERATION: Excision painful soft tissue masses right arm, right lower medial back PRE-OP DIAGNOSIS: Subcutaneous mass of right upper extremity, back and abdominal wall TISSUE SUBMITTED: A - Soft tissue mass cluster right lower medial back, B - Soft tissue mass cluster right upper abdominal wall, C - Soft tissue mass cluster right medial arm, D - Soft tissue mass cluster right posterior arm MICROSCOPIC DIAGNOSIS A. Soft tissue mass, right lower medial back, excision: Mature adipose tissue consistent with Angiolipoma. B. Soft tissue mass, right upper abdominal wall, excision. Mature adipose tissue consistent with Lipoma. C. Soft tissue mass, right medial am, excision: Mature adipose tissue consistent with Angiolipoma. D. Soft tissue mass, right posterior arm, excision: Mature adipose tissue consistent with Angiolipoma. AM:darren 02/05/2023 MICROSCOPIC DESCRIPTION Slides are reviewed. GROSS DESCRIPTION A - Received in fixative is one container labeled with the patient's name and designated soft tissue mass cluster right lower medial back. The specimen consists of two pieces of yellow adipose tissue measuring 2.3 x 1.5 x 0.7 cm and 1.0 x 0.5 x 0.2 cm. Sections reveal yellow adipose cut surfaces without area of hemorrhage, necrosis or cyst degeneration. The entire specimen is submitted in two cassettes. B - Received in fixative is one container labeled with the patient's name and designated soft tissue mass cluster right upper abdominal wall. The specimen consists of multiple pieces of yellow adipose tissue measuring in aggregate 5.5 x 5.0 x 1.0 cm. Sections reveal yellow adipose cut surfaces without area of hemorrhage, necrosis or cyst degeneration. Human Resource Manager sections are submitted in two cassettes. C - Received in fixative is one container labeled with the patient's name and designated soft tissue mass cluster right medial arm. The specimen consists of multiple pieces of yellow adipose tissue measuring in aggregate 7.0 x 7.0 x 1.5 cm. Sections reveal yellow adipose cut surfaces without area of hemorrhage, necrosis or cyst degeneration. Human Resource Manager sections are submitted in two cassettes. D - Received in fixative is one container labeled with the patient's name and designated soft tissue mass cluster right posterior arm. The specimen consists of multiple pieces of yellow adipose tissue measuring in aggregate 5.5 x 4.5 x 1.5 cm. Sections reveal yellow adipose cut surfaces without area of hemorrhage, necrosis or cyst degeneration. Human Resource Manager sections are submitted in two cassettes. / SJ:rg 02/04/2023 TC:1 CPT: 20577 x4
--- NOTE | 2023-02-01 00:36 | HP.PCM_ITS ---
History and Physical Date of Admission: 02/01/23 HISTORY OF PRESENT ILLNESS 52 year old man presents with multiple painful soft tissue masses on his right lower medial back, left upper abdominal wall/lower chest wall, right posterior arm, right medial arm, right upper abdominal wall/lower chest wall, and left posterior arm that have increased in size over the last several months. He has had lipomas removed in the past. In October, he had lipomas excised from his left upper abdominal wall/lower chest wall and left posterior arm. He has multiple other soft tissue masses but they are smaller and not painful at this time. He denies fever. He denies trauma. He denies recent infection. He denies drainage. Patient is right hand dominant. Today he will have the soft tissue masses excised from his right lower medial back, right posterior arm, right medial arm, and right upper abdominal wall/lower chest wall. PAST MEDICAL HISTORY Asthma Back pain Lipoma Subcutaneous mass of abdominal wall Subcutaneous mass of back Subcutaneous mass of left upper extremity Subcutaneous mass of right upper extremity PAST SURGICAL HISTORY history of lipoma removal History of wisdom tooth extraction ALLERGIES amoxicillin suture MEDICATIONS budesonide-formoterol HFA 80 mcg-4.5 mcg/actuation aerosol inhaler (Symbicort) 2 puff inhalation BID PRN 10/12/22 [History Confirmed 10/12/22] epinephrine 0.3 mg/0.3 mL injection, auto-injector (EpiPen 2-Farhat) 0.3 mg IM Q5- 15M PRN 10/12/22 [History Confirmed 10/12/22] FAMILY HISTORY Son - Asthma Brother - Kidney stones SOCIAL HISTORY Smoking Status: Never smoker alcohol intake: current substance use type: does not use REVIEW OF SYSTEMS General - Denies fever and weight loss. Has fatigue. Eyes - Denies cataracts and glaucoma. ENT - Denies nasal congestion and sore throat. Has had swollen glands in the neck. Endocrine - Has excessive thirst and urination. Skin - Denies skin cancer. Has multiple painful soft tissue masses on his right lower medial back, left upper abdominal wall/lower chest wall, right posterior arm, right medial arm, right upper abdominal wall/lower chest wall, and left posterior arm. Musculoskeletal - Denies joint pain, weakness of muscles and joints, back pain, and arthritis. Has joint stiffness. Neuro - Denies headaches. Has lightheadedness. Cardiovascular - Denies chest pain, and shortness of breath with exertion. Has fatigue. Has lightheadedness. Psych - Denies anxiety and depression. Respiratory - Denies chronic cough and shortness of breath. Has asthma. Gastrointestinal - Denies nausea, vomiting, diarrhea, and constipation. Hematologic - Denies abnormal bruising and bleeding. Genitourinary - Denies hematuria. Has urinary frequency. PHYSICAL EXAMINATION General - Alert and Oriented. HEENT - PERRL. EOMI. Throat is clear. No suspicious lesions noted. Neck - Supple and nontender. No cervical adenopathy. No suspicious lesions noted. Lungs - Clear to auscultation. Heart - Regular rate and rhythm. Abdomen - Soft and nondistended. On the left upper abdominal wall/lower chest wall are healed incisions from recent excision lipomas. Clinical evidence of some seroma fluid buildup. No evidence of infection. On the right upper abdominal wall/lower chest wall are soft tissue masses cluster. Measures 9 cm. They are mobile. No ulceration. Slight tenderness to palpation. Extremities - FROM. No axillary adenopathy. Radial pulses are palpable. Patient is right hand dominant. On the right posterior arm are a cluster of soft tissue masses that measure 12 cm. Some tenderness to palpation. They are mobile. No ulceration. No evidence of infection. On the right medial arm are a cluster of soft tissue masses that measure 9 cm. Some tenderness to palpation. They are mobile. No ulceration. No evidence of infection. On the left posterior arm are healing incision from recent excision lipomas cluster. No clinical evidence of seroma. No evidence of infection. Back - On the right lower medial back is a soft tissue mass that measures 1.5 cm. Tender to palpation. It is mobile. No ulceration. No evidence of infection. Neuro - CN II-XII grossly intact. Psych - Normal mood and affect. ASSESSMENT 1. 9 cm painful soft tissue masses cluster right upper abdominal wall/lower chest wall. 2. 12 cm painful soft tissue masses cluster right posterior arm. 3. 9 cm painful soft tissue masses cluster right medial arm. 4. 1.5 cm painful soft tissue mass right lower medial back. 5. History of excision lipomas cluster left posterior arm and excision lipomas cluster left upper abdominal wall/lower chest wall. 6. Postoperative seroma left upper abdominal wall/lower chest wall. PLAN These soft tissue masses are painful and get in the way of his activities of daily living. Recommend excision of these masses and send them to Pathology for analysis to rule out carcinoma. Some of the larger clusters may need a drain for 7-10 days after excision. For the extremities, he will wear a compression lianne wrap postoperatively for 4-6 weeks. For the abdominal wall and back, he will wear an abdominal binder for 4-6 weeks. My approach is to excise these masses in two trips to the operating room. The first surgery was in October,. For today's surgery, I will put the patient in the lateral position to excise the extremity masses. Also in this position, I will try and excise the soft tissue mass right lower medial back. His position may need rearranging if the mass is submuscular. Then he will be placed in supine position to excise the soft tissue masses c luster right upper abdominal wall/lower chest wall. I will also examine his left upper abdominal wall/lower chest wall for a seroma. While under anesthesia, I can drain it. Tissue that is removed will be sent to Pathology for analysis to rule out carcinoma. Surgery will be done under general anesthesia on an outpatient basis. Patient was informed of the risks and complications of the procedure including alternatives to surgery. These were discussed with the patient personally. Patient voices understanding and wishes to proceed. Some of the risks and complications were included in a form from the [employer]. Potential risks and complications included but not inclusive of bleeding, infection, seroma, hematoma, bruising, swelling, prolonged need for drains, loss of sensation to skin, wound breakdown, need for wound care, poor scarring, poor aesthetic outcome, intra operative cardiac or neurologic events, DVT, PE, and reaction to anesthesia. Assessment & Plan Assessment/Plan (1) Subcutaneous mass of right upper extremity: (2) Subcutaneous mass of back: (3) Subcutaneous mass of abdominal wall: (4) Status post excision of lipoma: (5) Postoperative seroma of subcutaneous tissue after dermatologic procedure:
[2023-02-01] MEDS: Lactated Ringers 1,000 ML 15 ML IV (06:38)
[2023-02-01 07:06] LABS: Bedside Glucose 89 mg/dL (74-106)
[2023-02-01] MEDS: Clindamycin 900 MG/50 ML BAG 75 MG IV (07:37)
[2023-02-01] MEDS: Mupirocin Ointment 22gm Tube 1 APPLIC (08:28)
[2023-02-01] MEDS: Lidocaine 1% /Epi 1:100 (20ml) 20 ML Vial ×2 (09:00→10:10)
--- NOTE | 2023-02-01 10:19 | OP.PCM_ITS ---
Problems Associated Problem List Diagnoses (1) Mass of right chest wall: (2) Status post excision of lipoma: (3) Dysesthesia of multiple sites: (4) Subcutaneous mass of right upper extremity: (5) Subcutaneous mass of abdominal wall: (6) Subcutaneous mass of back: (7) Postoperative seroma of subcutaneous tissue after dermatologic procedure: Report of Operation Date of Procedure: 02/01/23 Pre-Operative Diagnosis: 1. 9 cm painful soft tissue masses cluster right upper abdominal wall/lower chest wall. 2. 12 cm painful soft tissue masses cluster right posterior arm. 3. 9 cm painful soft tissue masses cluster right medial arm. 4. 1.5 cm painful soft tissue mass right lower medial back. 5. History of excision lipomas cluster left posterior arm and excision lipomas cluster left upper abdominal wall/lower chest wall. 6. Postoperative seroma left upper abdominal wall/lower chest wall, resolved. Post-Operative Diagnosis: Same. Surgery/Procedure Performed:: 1. Excision 9 cm painful soft tissue masses cl uster right upper abdominal wall (6 cm)/lower chest wall (3 cm). 2. Excision 12 cm painful soft tissue masses cluster right posterior arm. 3. Excision 9 cm painful soft tissue masses cluster right medial arm. 4. Excision 1.5 cm painful soft tissue mass right lower medial back. Description of Surgical Findings:: 52 year old man presents with multiple painful soft tissue masses on his right lower medial back, left upper abdominal wall/lower chest wall, right posterior arm, right medial arm, right upper abdominal wall/lower chest wall, and left posterior arm that have increased in size over the last several months. He has had lipomas removed in the past. In October, he had lipomas excised from his left upper abdominal wall/lower chest wall and left posterior arm. He has multiple other soft tissue masses but they are smaller and not painful at this time. He denies fever. He denies trauma. He denies recent infection. He denies drainage. Patient is right hand dominant. Today he will have the soft tissue masses excised from his right lower medial back, right posterior arm, right medial arm, and right upper abdominal wall/lower chest wall. Patient was informed of the risks and complications of the procedure including alternatives to surgery. These were discussed with the patient personally. Patient voices understanding and wishes to proceed. Some of the risks and complications were included in a form from the [employer]. Potential risks and complications included but not inclusive of bleeding, i nfection, seroma, hematoma, bruising, swelling, prolonged need for drains, loss of sensation to skin, wound breakdown, need for wound care, poor scarring, poor aesthetic outcome, intra operative cardiac or neurologic events, DVT, PE, and reaction to anesthesia. I used Anuradha absorbable hemostat, (I used 2 vials, one in right upper abdominal wall, and one in right medial arm and right posterior arm). Reference Number - [id number]. Lot Number - [id number]. Expiration - July 24, 2027, (Right upper abdominal wall). Reference Number - [id number]. Lot Number - [id number]. Expiration - August 22, 2027, (Right medial arm and right posterior arm). Surgeon: Terrence Brantley MD design center consultant: Jo Ann Monterroso RNFA Type of Anesthesia: General Anesthesiologist: Jacinto Bedolla MD and Edilberto Trinidad CRNA Specimen's removed: 1. Painful soft tissue masses cluster right upper abdominal wall/lower chest wall to Pathology. 2. Painful soft tissue masses cluster right posterior arm to Pathology. 3. Painful soft tissue masses cluster right medial arm to Pathology. 4. Painful soft tissue mass right lower medial back to Pathology. Drains: None. Estimated Blood Loss (mL): 50. Description of Procedure: Patient was taken to OR in supine position and was placed under general anesthesia. He was then placed in a lateral position to get exposure for the right lower medial back soft tissue mass. Hip positioners were used to stabilize the patient in the lateral position. SCD's were placed for DVT prophylaxis. Perioperative antibiotics were given intravenously. The soft tissue mass lower back area was infiltrated with Xylocaine with epinephrine. After waiting 5 minutes for the anesthetic to work, I made a longitudinal incision over this soft tissue mass and dissected into the subcutaneous tissue. The soft tissue mass was soft and well encapsulated and easily dissected free and sent to Pathology for analysis to rule out carcinoma. This mass was located in the subcutaneous plane. Sometimes these masses are located in the submuscular plane and would require a drain postoperatively. Hemostasis was obtained with electrocautery. The size of the soft tissue mass right lower medial back was 1.5 cm. The wound was closed in a layered fashion with 3-0 Monocryl interrupted sutures for the deep dermis and subcutaneous tissue. The skin was approximated with 4-0 Prolene simple interrupted sutures. Antibiotic ointment was applied to the suture line followed by gauze and an Op-Site dressing. The hip positioners were removed and the patient was placed in the supine position. The soft tissue masses cluster right upper abdominal wall/lower chest wall, right medial arm, and right posterior arm, were prepped and draped in the usual fashion. They were then infiltrated with xylocaine with epinephrine. After waiting 5 minutes for the anesthetic to take effect, I made 3 horizontal incisions to encompass the soft tissue masses cluster in the right upper abdominal wall/lower chest wall. The masses cluster were dissected sharply. These soft tissue masses cluster were well encapsulated. Fair amount of scar tissue was present around the whole cluster and was excised. The three incisions that were made were helpful during the dissection of these masses cluster. The inferior incisions gave good exposure for the right upper abdominal wall masses cluster. The superior incision gave good exposure for the right lower chest wall masses cluster. The remaining wound was not large enough for a drain, but I still sprayed Anuradha absorbable hemostat into the wounds to minimize seroma formation. Hemostasis was obtained with electrocautery. The size of the soft tissue masses cluster right upper abdominal wall/lower chest wall was 9 cm. About 6 cm of the masses cluster were in the right upper abdominal wall, and about 3 cm of the masses cluster were in the right lower chest wall. The wounds were closed in a layered fashion using 3-0 Monocryl interrupted sutures for the deep dermis and subcutaneous tissue. The skin was approximated with 4-0 Prolene simple interrupted sutures. The soft tissue masses cluster were sent to Pathology for analysis to rule out carcinoma. I then started on the right arm (posterior aspect and medial aspect).There were soft tissue masses cluster in both the medial aspect and the posterior aspect of the arm. Multiple longitudinal markings were made to get adequate exposure for both of these soft tissue masses clusters. Using xylocaine with epinephrine, both masses cluster were infiltrated. After waiting 5 minutes for the anesthetic to take effect, I addressed the posterior aspect right arm first. I made longitudinal incisions over this soft tissue masses cluster right posterior arm down into the subcutaneous tissue. The masses cluster were dissected sharply. It was well-encapsulated. Once excised the soft tissue masses cluster were sent to Pathology for analysis to rule out carcinoma. Hemostasis was obtained with electrocautery. The cavity wasn't large enough for a drain, but I sprayed Anuradha absorbable hemostat into the wounds to minimize seroma formation. The wounds were closed in a layered fashion using 3-0 Monocryl interrupted sutures for the deep dermis and subcutaneous tissue. The skin was approximated with 4-0 Prolene simple interrupted sutures. Next, I addressed the medial aspect right arm. Several palpable masses were present. Previous scars would indicate that these masses were excised in this area before. I made 3 incisions strategically placed so I could get exposure to all the soft tissue masses. Dissection was carried down into the subcutaneous tissue. A lot of dense scar tissue was present indicative of previous excision of these masses. All the masses in this cluster were sharply excised and sent to Pathology for analysis to rule out carcinoma. The soft tissue masses were well encapsulated. The surrounding scar tissue was also excised and sent to Pathology as well. These masses cluster were sent to Pathology for analysis to rule out carcinoma at the margins. I sprayed Anuradha absorbable hemostat into the wound to minimize seroma formation. All three incisions were closed in a layered fashion with 3-0 Monocryl interrupted sutures for the deep dermis and subcutaneous tissue. The skin was approximated with 4-0 Prolene simple interrupted sutures. The size of the soft tissue masses cluster right posterior arm was 12 cm. The size of the soft tissue masses cluster right medial arm was 9 cm. Antibiotic ointment was applied to the suture lines both on the right upper abdominal wall/lower chest wall and the right arm (posterior aspect and medial aspect). Kerlix gauze was then applied to both sites and followed with compression lianne wraps for the right arm and right upper abdominal wall/lower chest wall. Patient tolerated the procedure well and was sent to PACU in satisfactory condition. Patient will be sent home on antibiotics and pain medication. He will keep his right arm and head elevated during the initial postoperative period. Patient will followup in a week for a wound check and for discussion of the pathology report. The sutures will be removed in 2 weeks. Grafts/Implants Used: Anuradha absorbable hemostat x 2. Procedure Start Time: 08:17 Procedure Stop Time: 10:33 Complications None. Admit VTE Documentation VTE Present on Admission: No VTE Mechan Device Prophylaxis: SCD's VTE Pharm Prophylaxis ordered?: No Addendum Addendum: Surgery Charges CPT - 02014 ICD-10 - R22.2, R20.8, Z98.890, R22.31, L76.33 42555 R22.2, R20.8, Z98.890, R22.31, L76.33 47336 R22.31, R20.8, Z98.890, R22.2, L76.33 60421 R22.31, R20.8, Z98.890, R22.2, L76.33 73491 R22.2, R20.8, Z98.890, R22.31, L76.33
--- NOTE | 2023-02-01 11:41 | DCINST_ITS ---
Discharge Instructions Diet Discharge Diet: No restrictions and - (encourage nutritional supplementation with protein to help the healing process.) Activity Discharge Activity: May Not Drive (for one week.), May Shower (in two days.) and - (elevate right arm. no heavy lifting with right arm.) May shower in (days): 2 May resume sexual activity in: 10-14 days Weight Bearing Status: Weight bearing as tolerated Lifting Restrictions: 20 lbs. Keep extremity elevated above heart level: Right Arm Dressing / Incision Call your doctor if your incision/area has: Continuous Slow Oozing, Sudden Increased Bleeding, Increased Pain/ Swelling, Increased Redness, Foul Smelling Discharge and Swelling at the incision site Call your doctor if you observe: Fever of 101 or Higher, Coldness, Increased Pain, Shortness of breath, Chest pain, Calf discomfort and Uncontrolled pain Suture Line Care: - (apply antibiotic ointment to suture lines daily after operative dressing removed in 2 days.) Change Dressing in: 2 days (can remove the operative dressing in two days and then apply the antibiotic ointment to the suture line and followed with a dry Kerlix gauze and compression lianne wraps.) Remove Dressing in: 2 days (can reapply more gauze to the suture lines. Wear compression lianne wraps to the right arm and chest wall/upper abdominal wall.) Cleanse incision/area with: Soap & Water (may get the incisions wet in the shower in 2 days.) and Keep Dressing Clean & Dry Follow Up Care Please Follow Up With: Terrence Brantley MD When: 2 weeks nicole. call [phone] for appt time. Test Results: Test results from this visit will be discussed in further detail at your follow- up appointment, if applicable. Discharge Plan Admission Primary Reason for Your Visit: excision painful soft tissue masses rt abdomen, rt lower back, rt arm Attending Provider: Terrence Brantley Primary Care Provider: Angeles English Discharge Orders/Prescriptions Prescriptions: New clindamycin HCl [Cleocin HCl] 300 mg capsule 300 mg PO TID Qty: 30 0RF L.acidoph,saliva-B.bif-S.therm [Acidophilus Probiotic Blend] 175 mg capsule 1 cap PO DAILY Qty: 30 1RF oxycodone-acetaminophen [Percocet] 5-325 mg tablet 1 tab PO Q6H PRN (Reason: pain (scale score 7-10)) 7 Days Qty: 28 0RF Rx Instructions: 28 tabs (twenty-eight) diazepam [Valium] 5 mg tablet 5 mg PO TID PRN (Reason: spasms) Qty: 20 0RF Rx Instructions: 20 tabs (twenty) Continued budesonide-formoterol [Symbicort] 80-4.5 mcg/actuation HFA aerosol inhaler 2 puff inhalation BID PRN (Reason: ASTHMA) epinephrine [EpiPen 2-Farhat] 0.3 mg/0.3 mL auto-injector 0.3 mg IM Q5-15M PRN (Reason: ALLERGIES) Rx Instructions: do not exceed 3 doses per episode Referrals / Follow Up: Angeles English DO [Primary Care Provider] - Disposition Disposition (needs filled in before D/C Order can be placed): Home, Self Care
== END 2023-02-01 12:30 | disposition home or self-care (01) ==
LOC: SDC 05:57 → AC 05:58
PROVIDERS: PCP Family Medicine; Referring Provider Surgery; Visit Provider Surgery
PROC: (CPT 22903; principal; 2023-02-01 07:15)
DX: D17.1 Benign lipomatous neoplasm of skin and subcutaneous tissue of trunk (principal); D17.22 Benign lipomatous neoplasm of skin and subcutaneous tissue of left arm; R20.8 Other disturbances of skin sensation; Z98.890 Other specified postprocedural states; L76.33 Postprocedural seroma of skin and subcutaneous tissue following a dermatologic procedure; J45.909 Unspecified asthma, uncomplicated; F84.0 Autistic disorder
CPT/HCPCS: 22903; 21552; 24071; 21930; 82962; 88304; 88305; J7120; J2405

== ENCOUNTER → 2023-02-08 | Outpatient (CLI) | payer OTHER, SELFPAY ==
[2023-02-08 16:32] LABS: Amphetamine Urine VISTA NEGATIVE (<1000 ng/mL); Barbiturate Urine VISTA NEGATIVE (< 200 ng/mL); Benzodiazepine Urine VISTA NEGATIVE (< 200 ng/mL); Cocaine Urine VISTA NEGATIVE (< 300 ng/mL); Ecstacy Urine VISTA NEGATIVE (< 500 ng/mL); Methadone Urine VISTA NEGATIVE (< 300 ng/mL); PCP Urine VISTA NEGATIVE (< 25 ng/mL); THC Urine VISTA NEGATIVE (< 50 ng/mL); Vista UDS pH Range 6
== END | disposition home or self-care (01) ==
LOC: LAB 15:27
PROVIDERS: PCP Family Medicine; Referring Provider Internal Medicine Pulmonary Disease; Visit Provider Internal Medicine Pulmonary Disease
DX: G47.10 Hypersomnia, unspecified (principal)
CPT/HCPCS: 80307

== ENCOUNTER 2023-02-10 15:03 | Emergency (ER) | payer OTHER, SELFPAY ==
[2023-02-10 15:04] VITALS: BP 138/99; PULSE 61; RESP 18; TEMP 36.6; O2SAT 98
--- NOTE | 2023-02-10 15:31 | EX.ED.UPPERE ---
HPI History of Present Illness HPI Narrative: Patient presents with pain and swelling to his right upper arm that has been getting worse over the past 5 days. Patient states he had lipoma excisions from his right upper arm 5 days ago. Patient states that the pain and swelling has been getting progressively worse. Patient describes it as constant dull but sharp and burning at times. Patient states nothing makes it worse and nothing makes it better. Patient is currently on clindamycin. States she has been keeping it elevated with minimal improvement. Patient states she has been using an Yovanny wrap with minimal improvement. Chief Complaint: Wound Informant: patient Onset/Context/Timing Onset: Days (5) Context: Gradual Onset Timing: Continuous Quality of Pain: Sharp (At times), Dull and Burning (At times) Location: Upper arm Worsened by: Nothing Relieved by: Nothing Associated Symptoms Associated Symptoms: Negative for Parasthesia, Weakness or Loss of Funtion [facility] History Alcohol use Arthritis Asthma Autism Back pain Difficulty swallowing Dysesthesia of multiple sites Eosinophilic esophagitis Hematoma Lipoma Lipoma of abdominal wall Lipoma of anterior chest wall Lipoma of left upper extremity Mass of left chest wall Mass of right chest wall Non-smoker Postoperative seroma of subcutaneous tissue after dermatologic procedure Subcutaneous mass of abdominal wall Subcutaneous mass of back Subcutaneous mass of left upper extremity Subcutaneous mass of right upper extremity Home Medications budesonide-formoterol HFA 80 mcg-4.5 mcg/actuation aerosol inhaler (Symbicort) 2 puff inhalation BID PRN ASTHMA 10/12/22 [History Last Taken Unknown] epinephrine 0.3 mg/0.3 mL injection, auto-injector (EpiPen 2-Farhat) 0.3 mg IM Q5-15M PRN ALLERGIES 10/12/22 [History Last Taken Unknown] clindamycin HCl 300 mg capsule (Cleocin HCl) 300 mg PO TID #30 caps 02/01/23 [Rx Last Taken Unknown] diazepam 5 mg tablet (Valium) 5 mg PO TID PRN spasms #20 tabs 02/01/23 [Rx Last Taken Unknown] oxycodone-acetaminophen 5 mg-325 mg tablet (Percocet) 1 tab PO Q6H PRN pain (scale score 7-10) 7 days #28 tabs 02/01/23 [Rx Last Taken Unknown] L.acidophil,salivari-Bifido bifidum-Strep thermoph 175 mg capsule See Rx Instructions .Route .COMPLEX #30 caps 02/07/23 [Rx Last Taken Unknown] Allergy/AdvReac Type Severity Reaction Status Date / Time amoxicillin Allergy Mild hives Verified 02/10/23 15:12 chicken derived Allergy intolerance- Verified 02/10/23 15:12 upset stomach egg [eggs] Allergy intolerance- Verified 02/10/23 15:12 upset stomach milk Allergy intolerance- Verified 02/10/23 15:12 upset stomach Milk Containing Products Allergy intolerance- Verified 02/10/23 15:12 (Dairy) upset stomach shrimp Allergy Anaphylaxis Verified 02/10/23 15:12 wheat Allergy intolerance- Verified 02/10/23 15:12 upset stomach LATEX SUTURES Allergy Intermediate Other Uncoded 02/04/23 10:22 Family History Son Asthma Brother Kidney stones Surgical History history of lipoma removal History of wisdom tooth extraction Status post excision of lipoma Social History household members: spouse and children Smoking Status: Never smoker alcohol intake: current substance use type: does not use ROS ROS ED Constitutional Constitutional ED: Denies chills or fever(s) Eyes Eyes: Denies blurry vision or change in vision ENT ENT ED: Denies rhinorrhea or sore throat Cardiovascular Cardiovascular: Denies chest pain or palpitations Respiratory/Chest Respiratory/Chest: Denies cough or dyspnea Gastrointestinal Gastrointestinal: Denies nausea or vomiting Genitourinary Genitourinary ED: Denies dysuria or hematuria Musculoskeletal Musculoskeletal: Denies back pain or neck pain Integumentary Denies abscess or rash Neurologic Neurologic: Denies headache(s) or weakness Allergic/Immunologic Allergic/Immunologic ED: Denies mouth swelling or urticaria EXAM Physical Exam Const Vital Signs: 02/10/23 15:04 Temperature 97.8 F Temperature Source Temporal Pulse Rate 61 Respiratory Rate 18 Blood Pressure 138/99 H Blood Pressure Mean 112 Pulse Ox 98 Oxygen Delivery Method Room Air Positive well nourished and well developed General Appearance ED: well developed and NAD HEENT Reports moist mucous membranes Neck full ROM and supple Extremity Extremity Narrative: There are multiple incisions of the medial and posterior aspects of the right upper arm. There is no surrounding erythema. There is no warmth noted. There is some edema and fluid collection under the incisions. There is no active discharge or drainage noted. There is mild tenderness. There is full range of motion of the left shoulder and left elbow. Radial pulses are equal bilaterally. Capillary refill was less than 2 seconds in all digits. Strength is 5/5 bilaterally in the upper extremities. There are no sensory deficits noted. General Extremety ED: Yes edema General Extremity: edema Neuro oriented x3, CN's II-XII intact bilaterally, moves all extremities and no focal motor deficits Sensorium / Orientation: alert Motor Exam: strength 5/5 throughout Psych mental status grossly normal MDM MDM MDM Narrative Medical decision making narrative: CBC will be obtained to assess for anemia and leukocytosis. Ntnep-fr-kabz ultrasound will be obtained to assess for abscess versus hematoma. Lab Data Attestation: I reviewed the patient's lab results. Lab results narrative: CBC was reviewed and was essentially within normal limits. Treatment and Re-Evaluation Narrative: Ultrasound was used. This appears to be a hematoma. It does not appear to be an abscess. Patient was advised of his findings. Patient was instructed to continue using Yovanny wrap. Patient states he has an appointment with his surgeon's nurse practitioner later this week. Patient was instructed to continue to ice and elevate the right upper arm. Patient was instructed to continue his clindamycin as prescribed. Patient was instructed return if worse in any way. Patient understood and was agreeable with the plan. All questions were answered. Discharge Plan Triage Chief Complaint: Wound ED Provider: Jacinto Howard Dx/Rx/DC Orders Clinical Impression: Status post excision of lipoma, Postoperative hematoma Instructions: ED Hematoma Prescriptions: No Action budesonide-formoterol [Symbicort] 80-4.5 mcg/actuation HFA aerosol inhaler 2 puff inhalation BID PRN (Reason: ASTHMA) epinephrine [EpiPen 2-Farhat] 0.3 mg/0.3 mL auto-injector 0.3 mg IM Q5-15M PRN (Reason: ALLERGIES) Rx Instructions: do not exceed 3 doses per episode clindamycin HCl [Cleocin HCl] 300 mg capsule 300 mg PO TID Qty: 30 0RF oxycodone-acetaminophen [Percocet] 5-325 mg tablet 1 tab PO Q6H PRN (Reason: pain (scale score 7-10)) 7 Days Qty: 28 0RF Rx Instructions: 28 tabs (twenty-eight) diazepam [Valium] 5 mg tablet 5 mg PO TID PRN (Reason: spasms) Qty: 20 0RF Rx Instructions: 20 tabs (twenty) L.acidoph,saliva-B.bif-S.therm 175 mg capsule See Rx Instructions .ROUTE .COMPLEX Qty: 30 0RF Dose Instruction: TAKE 1 CAPSULE BY MOUTH EVERY DAY Rx Instructions: TAKE 1 CAPSULE BY MOUTH EVERY DAY Primary Care Provider: Angeles English Referrals: Terrence Brantley MD [Med Staff - Active Staff] - Keep Ra appointment Angeles English DO [Primary Care Provider] - 5-7 Days Disposition Disposition: Home, Self Care
[2023-02-10 16:20] LABS: Absolute Lymphocyte Count 2.26 X10^3/uL (0.83-4.51); Absolute Neutrophil Count 4.7 X10^3/uL (2.0-7.7); Basophil# 0.15 X10^3/uL; Basophil% 1.7 % (0-1); Hematocrit 45.5 % (40-54); Lymphocyte # 2.26 X10^3/ul (0.83-4.51); Mean Corpuscular Hgb 29.9 pg (27.0-32.0); Mean Corpuscular Volume 90.6 fL (80-94); Mean Platelet Vol. 12.9 fl (6.2-12.0); Monocyte# 0.81 X10^3/uL; Monocyte% 9.3 % (0-10); NRBC Flagged by Analyzer 0 % (0-5); Neutrophil # 4.74 X10^3/uL (2.7-7.7); Neutrophil % 54.5 % (47-70); Platelet Count 215 K/mm3 (150-450); RBC Distribution Width CV 12.6 % (11.6-14.6); RBC Distribution Width SD 41.2 fl (35.1-43.9); Red Blood Count 5.02 M/mm3 (4.6-6.2); White Blood Count 8.7 K/mm3 (4.4-11.0)
[2023-02-10 16:56] VITALS: BP 118/84; PULSE 63; RESP 18; O2SAT 98
== END 2023-02-10 16:57 | disposition home or self-care (01) ==
PROVIDERS: Emergency Provider Emergency Medicine; PCP Family Medicine; Visit Provider Emergency Medicine
DX: L76.31 Postprocedural hematoma of skin and subcutaneous tissue following a dermatologic procedure (principal); J45.909 Unspecified asthma, uncomplicated; Z79.51 Long term (current) use of inhaled steroids
CPT/HCPCS: 36415; 85025; 99283

== ENCOUNTER 2023-02-15 07:54 | Outpatient (CLI) | payer OTHER, SELFPAY ==
--- NOTE | 2023-02-15 07:57 | US_ITS ---
INDICATION: HIGH ESTRADIOL, assess for testicular tumor EXAMINATION: Ultrasound US Scrotum (Contents) TECHNIQUE: Realtime ultrasound of the testicles was performed with grayscale, Color Doppler and spectral Doppler analysis. COMPARISON: No prior examinations are available for comparison. FINDINGS: RIGHT: TESTIS: 5.6 x 4 x 3.5 cm. Normal in size and echotexture, without focal lesion. COLOR DOPPLER: Normal arterial flow present in the testicle with monophasic waveforms. EPIDIDYMIS: Normal in size and echotexture measuring about 1.3 cm, without focal lesion. [Normal color Doppler flow pattern in the epididymis. HYDROCELE: None. VARICOCELE: None. LEFT: TESTIS: 5.7 x 3.3 x 3.2 cm. Normal in size and echotexture, without focal lesion. COLOR DOPPLER: Normal arterial flow present in the testicle with monophasic waveforms. EPIDIDYMIS: Normal in size and echotexture measuring about 1.2 cm. There is a 5 mm cyst in the left epididymal head. [Normal color Doppler flow pattern in the epididymis. HYDROCELE: None. VARICOCELE: None. US/Testicular with Arterial Flow IMPRESSION: 1. Unremarkable testicles without evidence of testicular torsion. 2. Small left epididymal cyst. Electronically Signed: Camilo Birch MD at 12:25 EDT ,
--- NOTE | 2023-02-15 08:27 | US_ITS ---
STUDY: ULTRASOUND BREAST - RIGHT REASON FOR EXAM: Male, 52 years old. Palpable lumps. TECHNIQUE: Axial and longitudinal images of the RIGHT breast were performed with a high resolution ultrasound transducer. # OF IMAGES: 96 COMPARISON: None. FINDINGS: RIGHT Breast: There are 3 echogenic well-defined nodules correspond with the palpable abnormalities overlying the right breast. The largest measures 1.8 cm by 2.1 cm x 0.5 cm. These most likely absent lipomas. IMPRESSION: The palpable abnormalities correspond to echogenic nodules as described. These most likely represent lipomas. ASSESSMENT CATEGORY: BIRADS Category 2: Benign. A letter regarding these results will be sent to the patient by the facility within 30 days. Electronically Signed: Wilber Gomez MD at 11:24 EDT , STUDY: ULTRASOUND BREAST - LEFT REASON FOR EXAM: Male, 52 years old. Palpable lumps. TECHNIQUE: Axial and longitudinal images of the LEFT breast were performed with a high resolution ultrasound transducer. # OF IMAGES: 96 COMPARISON: Comparison is made with prior mammogram done earlier in the day. FINDINGS: LEFT Breast: The palpable abnormalities correspond to 2 echogenic nodules in the mid inferior lateral aspect of the left breast. The largest measures 3.2 cm x 1.7 cm x 0.9 cm. These most likely represent small lipomas. US/Breast Limited Unilateral IMPRESSION: The palpable lumps correspond to small lipomas. ASSESSMENT CATEGORY: BIRADS Category 2: Benign. A letter regarding these results will be sent to the patient by the facility within 30 days. Electronically Signed: Wilber Gomez MD at 11:25 EDT ,
--- NOTE | 2023-02-15 08:27 | BI_ITS ---
MAMMOGRAPHY - BILATERAL DIAGNOSTIC REASON FOR EXAM: Male, 52 years old. Multiple small bilateral palpable abnormalities. Patient has a history of resection of multiple lipomas. PERTINENT HISTORY: Non-contributory. TECHNIQUE: Digital bilateral breast sage (3D mammographic acquisition) in the CC and MLO projections. 2-D mediolateral oblique (MLO) and craniocaudad (CC) views of both breasts were obtained. CAD: Full Field Digital Mammography with Computer Added Detection was performed. COMPARISON: None. Baseline examination. FINDINGS: Breast Composition: The breasts are almost entirely fatty. There are no dominant masses or suspicious calcifications. No other significant abnormalities are identified. BI/DIAG MAMM W/CAD, BILAT IMPRESSION: Negative diagnostic mammogram. With patient history of multiple bilateral superficial palpable lumps, correlation with ultrasound is recommended. ASSESSMENT CATEGORY: BIRADS Category 0: Incomplete. Need additional imaging evaluation. A letter regarding these results will be sent to the patient by the facility within 30 days. Approximately 10% of breast cancers are not detected by mammography. A normal mammogram should not delay biopsy of a clinically suspicious abnormality. Electronically Signed: Wilber Gomez MD at 9:35 EDT ,
--- NOTE | 2023-02-15 13:00 | US_ITS ---
STUDY: SUPERFICIAL ULTRASOUND - POSTOPERATIVE SEROMA. REASON FOR EXAM: Male, 52 years old. Right medial arm swelling/clincally seroma -- swelling in right upper arm TECHNIQUE: A superficial ultrasound was performed with real-time and static bear-scale imaging. COMPARISON: None. FINDINGS: The palpable lump corresponds to a 9.5 cm by 8.3 cm x 1.8 cm fluid collection. This is in keeping with a postoperative seroma. US/Ext Non Vasc Limited/Soft Tiss IMPRESSION: 9.5 cm x 8.3 cm by 1.8 cm postoperative seroma corresponds to the palpable lump. Electronically Signed: Wilber Gomez MD at 14:32 EDT ,
== END 2023-02-15 08:00 | disposition home or self-care (01) ==
PROVIDERS: PCP Family Medicine; Referring Provider Internal Medicine Endocrinology, Diabetes & Metabolism; Visit Provider Internal Medicine Endocrinology, Diabetes & Metabolism
DX: R79.89 Other specified abnormal findings of blood chemistry (principal); M88.9 Osteitis deformans of unspecified bone; L76.33 Postprocedural seroma of skin and subcutaneous tissue following a dermatologic procedure; R22.31 Localized swelling, mass and lump, right upper limb; Z98.890 Other specified postprocedural states; Z86.018 Personal history of other benign neoplasm; N63.0 Unspecified lump in unspecified breast
CPT/HCPCS: 76642; 76870; 76882; 77062; 77066; 93976; G0279

== ENCOUNTER 2023-02-18 10:24 | Outpatient (CLI) | payer OTHER, SELFPAY ==
--- NOTE | 2023-02-18 | FLU_PTH ---
PATIENT: LUZMARIA ROMO LOC: [facility]#:[id number] AGE/SX: 52/M ROOM: RE02/18/[address]: OCTAVIO Thacker : 1970 BED: DIS: 02/18/2023 SPEC #: [id number] RECD: 02/18/23 12:05 STATUS: SHWETA RESatish #: [id number] ARIADNA: 02/18/23 00:[address]: Santa Butts NP DEPT: CYTOLOGY RECD BY: Nikolas Hernandez ENTERED: 02/18/23 12:06 SP TYPE: Fluid OTHR DR: Angeles English DO Tissues: Arm, NOS Procedures: Special Stain Group II Surgery Specimen Level IV Cytospin Fluid HEADER OPERATION: Right arm seroma, drainage at area of surgery site PRE-OP DIAGNOSIS: Right arm seroma TISSUE SUBMITTED: Right arm seroma fluid for cytology DIAGNOSIS CYTOLOGY Right arm seroma fluid for cytology (cytospin and cell block): Negative for malignant cells. See comment. SJ:darren 02/19/2023 COMMENT Clinical correlation and appropriate follow up are necessary. CYTOLOGY STUDY Slides are reviewed. CYTOLOGY GROSS Received is 30 ml of red cloudy fluid labeled with the patient's name and and designated per the requisition as right arm. Submitted for cytology preparation including cell block. / darren 02/18/2023 TC:5 CPT: 32516, 16071
--- NOTE | 2023-02-18 10:25 | US_ITS ---
STUDY: POSTOPERATIVE SEROMA DRAINAGE. RIGHT REASON FOR EXAM: Male, 52 years old. Right upper medial arm seroma -- Possible drainage of seroma of right upper arm -- POST OP SURGERY-LIPOMA REMOVAL 2 WEEKS AGO TECHNIQUE: Under direct sonographic guidance, a 5 Yoruba catheter was placed into the collection. 30 mL of blood-tinged fluid was aspirated from the operative site. COMPARISON: Comparison is made with prior sonogram dated February 15, 2023. FINDINGS: Successful drainage of a seroma in the upper right arm. US/Cyst Puncture IMPRESSION: Successful drainage of a seroma in the upper right arm with removal of 30 mL of blood-tinged fluid. Electronically Signed: Wilber Gomez MD at 13:15 EDT ,
== END 2023-02-18 23:59 | disposition home or self-care (01) ==
LOC: US 10:24
PROVIDERS: PCP Family Medicine; Referring Provider Nurse Practitioner Family; Visit Provider Nurse Practitioner Family
DX: R22.31 Localized swelling, mass and lump, right upper limb (principal); G89.18 Other acute postprocedural pain; L76.33 Postprocedural seroma of skin and subcutaneous tissue following a dermatologic procedure
CPT/HCPCS: 10160; 76942; 87070; 87075; 87205; 88108; 88305; 88313

== ENCOUNTER → 2023-04-01 | Outpatient (CLI) | payer OTHER, SELFPAY ==
[2023-04-01 12:56] LABS: Insulin 14.7 mU/L (2.6-37.6)
[2023-04-01 13:21] LABS: ALB/GLOB Ratio 1.1 RATIO (0.9-2.4); AST(SGOT) 14 U/L (15-37); Alanine Aminotransfer ALT/SGPT 33 U/L (16-61); Albumin, Serum 3.7 g/dL (3.2-5.0); Alkaline Phosphatase 152 U/L (45-117); Anion Gap 6 (5-15); BUN 12 mg/dL (7-18); BUN/Creat Ratio 13.8 RATIO (10-20); Calcium,Total 8.5 mg/dL (8.5-10.1); Chloride 108 mmol/L (98-107); Cholesterol 211 mg/dL (200); Creatinine, Serum 0.87 mg/dL (0.70-1.30); EST Glomerular Filtration Rate 98 mL/min (>60); Est Glom Filt Rate - Afr Amer 118 mL/min (>60); Estradiol < 11.0 pg/mL; Follicle Stimulating Hormone 3.7 mIU/mL; Globulin 3.3 g/dL (2.2-4.2); Glucose 107 mg/dL (74-106); High Density Lipoprotein 55 mg/dL; Luteinizing Hormone 1.1 mIU/mL; Potassium 3.9 mmol/L (3.5-5.1); Sodium Level 138 mmol/L (136-145); Thyroid Stim Hormone (TSH) 0.54 uIU/mL (0.358-3.74); Triglycerides 141 mg/dL; Very Low Density Lipoprotein 28 mg/dL (5-40)
[2023-04-05 12:09] LABS: C-Peptide 3.3 ng/mL (1.1-4.4); Testosterone, % Free 2.75 % (1.50-4.20); Testosterone, Free 7.81 ng/dL (5.00-21.00); Testosterone, Total 284 ng/dL (264-916)
[2023-04-05 19:07] LABS: 17-Hydroxyprogesterone 66 ng/dL (27-199)
== END | disposition home or self-care (01) ==
PROVIDERS: PCP Family Medicine; Referring Provider Internal Medicine Endocrinology, Diabetes & Metabolism; Visit Provider Internal Medicine Endocrinology, Diabetes & Metabolism
DX: M88.9 Osteitis deformans of unspecified bone (principal); R53.83 Other fatigue; R79.89 Other specified abnormal findings of blood chemistry
CPT/HCPCS: 36415; 80053; 80061; 82670; 83001; 83002; 83036; 83498; 83525; 84146; 84402; 84403; 84443; 84681

== ENCOUNTER → 2023-07-24 | Outpatient (CLI) | payer OTHER, SELFPAY ==
[2023-07-24 10:23] LABS: Hematocrit 50.3 % (40-54); Hemoglobin 16.5 g/dL (13.0-16.5); Mean Corp Hgb Conc 32.8 g/dL (32-36); Mean Corpuscular Hgb 28.8 pg (27.0-32.0); Mean Corpuscular Volume 87.9 fL (80-94); Mean Platelet Vol. 13.2 fl (6.2-12.0); Platelet Count 183 K/mm3 (150-450); RBC Distribution Width CV 12.6 % (11.6-14.6); RBC Distribution Width SD 40.8 fl (35.1-43.9); Red Blood Count 5.72 M/mm3 (4.6-6.2); White Blood Count 9.1 K/mm3 (4.4-11.0)
[2023-07-24 11:01] LABS: ALB/GLOB Ratio 1.3 RATIO (0.9-2.4); AST(SGOT) 28 U/L (15-37); Alanine Aminotransfer ALT/SGPT 38 U/L (16-61); Albumin, Serum 3.8 g/dL (3.2-5.0); Alkaline Phosphatase 126 U/L (45-117); Anion Gap 4 (5-15); BUN 20 mg/dL (7-18); Calcium,Total 9.2 mg/dL (8.5-10.1); Chloride 109 mmol/L (98-107); Creatinine, Serum 1.11 mg/dL (0.70-1.30); EST Glomerular Filtration Rate 74 mL/min (>60); Est Glom Filt Rate - Afr Amer 89 mL/min (>60); Estradiol 15.5 pg/mL; Globulin 2.9 g/dL (2.2-4.2); Glucose 88 mg/dL (74-106); PSA,Total- Diagnostic 1.23 ng/mL (0.0-4.0); Protein, Total 6.7 g/dL (6.4-8.2); Sodium Level 139 mmol/L (136-145)
== END | disposition home or self-care (01) ==
PROVIDERS: PCP Family Medicine; Referring Provider Internal Medicine Endocrinology, Diabetes & Metabolism; Visit Provider Internal Medicine Endocrinology, Diabetes & Metabolism
DX: M88.9 Osteitis deformans of unspecified bone (principal); E23.0 Hypopituitarism; E16.2 Hypoglycemia, unspecified
CPT/HCPCS: 36415; 80053; 82670; 84153; 84403; 85027